=== PATIENT | female | born 1930 | race Asian ===

== ENCOUNTER 2018-12-31 21:04 | Inpatient (IN) | payer OTHER, MEDICAID ==
[~2018-12-31] VITALS: Ht 152.4 cm; Wt 43.1 kg
[2018-12-31 21:09] VITALS: BP_SYST 140
--- NOTE | 2018-12-31 21:15 | NUR ---
Placed in room 6 . Placed on etl architect, blood pressure machine and pulse oximeter. To gown for exam. Side rails up. Report given to YOGESH LUKE.
--- NOTE | 2018-12-31 21:30 | NUR ---
Emily eaton in ED - 12/31/18 at 2135 by [email or web address] Patient to ER bed 6 to wn for evaluation. Side rails up.
--- NOTE | 2018-12-31 21:30 | NUR ---
Pt came to the ED for abnormal labs. Reported from facility hemoglobin is 7.7. Denies n/v/d or fever. No other complaints/injuries noted. Will cont. to monitor.
[2018-12-31] MEDS ORDERED: FLEETMO RC (21:33)
[2018-12-31] MEDS ORDERED: FER300L PO (21:33)
[2018-12-31] MEDS ORDERED: FAMO20TA8 PO (21:33)
[2018-12-31] MEDS ORDERED: LEVO175T2 PO (21:33)
[2018-12-31] MEDS ORDERED: METO50TA7 PO (21:33)
[2018-12-31] MEDS ORDERED: FOLI-43 PO (21:33)
[2018-12-31] MEDS ORDERED: MULT-1117 PO (21:33)
[2018-12-31] MEDS ORDERED: ISOS5TAB3 PO (21:33)
[2018-12-31] MEDS ORDERED: PYRI200T10 PO (21:33)
[2018-12-31] MEDS ORDERED: ACET325T53 PO (21:33)
[2018-12-31] MEDS ORDERED: DOCU-144 PO (21:33)
[2018-12-31] MEDS ORDERED: CRAN450C PO (21:33)
[2018-12-31] MEDS ORDERED: NUT.237L28 PO (21:33)
[2018-12-31] MEDS ORDERED: EPOE3000 SUBCUT (21:33)
[2018-12-31] MEDS ORDERED: MOM PO (21:33)
[2018-12-31] MEDS ORDERED: MONT10TA25 PO (21:33)
[2018-12-31] MEDS ORDERED: LIP40 PO (21:33)
--- NOTE | 2018-12-31 21:35 | NUR ---
Medication reconciliation completed with information provided by [facility]. Any prior medication reconciliation on file was reviewed and corrected.
[2018-12-31 21:40] LABS: BASOPHILS # (AUTO) 0.1 K/uL (0.0-0.2); EOSINOPHILS # (AUTO) 0.3 K/uL (0.0-0.4); HEMATOCRIT 23.6 % (36-48); MEAN CORPUSCULAR HEMOGLOBIN 38 pg (27-31); MEAN CORPUSCULAR VOLUME 114 fL (79.0-98.0); NEUTROPHILS # (AUTO) 3.3 K/uL (1.8-7.7); WHITE BLOOD COUNT (AUTO) 5.9 K/uL (4.8-10.8)
--- NOTE | 2018-12-31 21:45 | NUR ---
ER at bedside examining patient.
[2018-12-31 21:46] LABS: BASOPHILS % (AUTO) 1.1 % (0.0-2.0); EOSINOPHILS % (AUTO) 5.5 % (0.0-4.0); LYMPHOCYTES # (AUTO) 1.6 K/uL (1.0-5.5); LYMPHOCYTES % (AUTO) 27.6 % (20.5-51.5); MEAN CORPUSCULAR HGB CONC 34 % (32-36); MONOCYTES # (AUTO) 0.6 K/uL (0.0-1.0); MONOCYTES % (AUTO) 10.7 % (1.7-9.3); NEUTROPHILS % (AUTO) 55.1 % (40.0-70.0); PLATELET COUNT (AUTO) 274 K/uL (130-430); RED BLOOD CELL COUNT(AUTO) 2.08 MIL/uL (4.2-6.2); RED CELL DISTRIBUTION WIDTH 29.3 % (9.0-15.0)
[2018-12-31 21:51] LABS: ANION GAP 6 (5-15); CALCIUM 8.9 mg/dL (8.4-11.0); CHLORIDE 107 mmol/L (98-107); CREATININE 1.15 mg/dL (0.55-1.30); GLUCOSE 108 mg/dL (70-99); POTASSIUM 5.1 mmol/L (3.5-5.1); SODIUM SERUM 139 mmol/L (136-145); UREA NITROGEN, BLOOD 44 mg/dL (8-21)
[2018-12-31 21:57] LABS: ALANINE AMINOTRANSFERASE 80 U/L (12-78); ALBUMIN 3.4 g/dL (3.4-4.8); ASPARTATE AMINOTRANSFERASE 51 U/L (10-37); TOTAL BILIRUBIN 1.1 mg/dL (0.0-1.0)
[2018-12-31 22:05] LABS: INR 1.1 (0.8-1.2); PROTHROMBIN TIME 10.6 SECS (9.5-12.5)
[2018-12-31 22:32] LABS: BILIRUBIN,URINE NEGATIVE (NEGATIVE); BLOOD, URINE NEGATIVE (NEGATIVE); CLARITY/URINE CLEAR (CLEAR); COLOR,URINE YELLOW (YELLOW); GLUCOSE,URINE NEGATIVE (NEGATIVE); KETONES,URINE NEGATIVE (NEGATIVE); LEUKOCYTE ESTERASE ,URINE NEGATIVE (NEGATIVE); NITRITE, URINE NEGATIVE (NEGATIVE); PROTEIN URINE 1+ (NEGATIVE); UROBILINOGEN,URINE 0.2 (0.2-1.0)
[2018-12-31 22:35] LABS: RBC,URINE 0-3 /HPF (0-3)
[2018-12-31 22:36] LABS: BACTERIA,URINE FEW /HPF (None Seen); WBC,URINE 0-3 /HPF (0-3)
--- NOTE | 2018-12-31 23:24 | NUR ---
Patient will be admitted to care of Dr. Galicia. Admitted to Tele unit. Will go to room 135. Belongings list completed. Summary report printed. Report will be given at bedside.
--- NOTE | 2018-12-31 23:29 | NUR ---
Called [facility] for bed, waiting for placement.
--- NOTE | 2018-12-31 23:46 | NUR ---
Transfer to [facility]. IV present no sign or symptom of infiltration.
--- NOTE | 2018-12-31 23:46 | NUR ---
ADMISSION NOTE Received patient from ER via abiodun, received report from TI ZUÑIGA. Patient admitted with diagnosis of ANEMIA. Patient oriented to hospital routine, call light, toileting and safety-patient verbalized understanding.
[2018-12-31 23:58] VITALS: BP_SYST 129
--- NOTE | 2019-01-01 00:30 | NUR ---
BEDPAN Patient called, requesting for bedpan. Bedpan provided by RN. Patient tolerated well. All needs met at this time. No s/s of acute distress noted. Breathing even and unlabored. Call light with patient, instructed to call for assistance when needed, patient verbalized understanding and demonstrated back proper use. Bed alarm on. Bed is locked and at lowest position. Will continue to monitor.
--- NOTE | 2019-01-01 02:35 | NUR ---
ROUNDS Pt in bed with eyes closed resting comfortably. No signs of acute distress or discomfort noted. Even and unlabored breathing noted with symmetrical chest rise and fall. Bed is locked and in lowest position, call light within reach, will cont to monitor pt.
--- NOTE | 2019-01-01 04:30 | NUR ---
ROUNDS Patient in bed sleeping. no signs of discomfort noted. Chest rise and fall even bilaterally. Call light with patient. Bed alarm on. Will continue to monitor.
[2019-01-01] MEDS: NORMAL SALINE 5 ML DISP.SYRIN IVF SCH ×3 (05:51→21:35)
--- NOTE | 2019-01-01 06:38 | NUR ---
CLOSING NOTES Patient in bed sleeping at this time. No s/s of acute distress noted. Breathing even and unlabored. IV site patent, no signs of infiltration or infection noted. All needs met throughout shift. Fall and safety precautions maintained throughout shift. Will continue to monitor until patient care is endorsed to oncoming dayshift nurse.
[2019-01-01 07:30] LABS: EOSINOPHILS # (AUTO) 0.3 K/uL (0.0-0.4); EOSINOPHILS % (AUTO) 6.6 % (0.0-4.0); LYMPHOCYTES # (AUTO) 1.6 K/uL (1.0-5.5); LYMPHOCYTES % (AUTO) 34.6 % (20.5-51.5); MEAN CORPUSCULAR HEMOGLOBIN 38 pg (27-31); MEAN CORPUSCULAR HGB CONC 33 % (32-36); MEAN CORPUSCULAR VOLUME 114 fL (79.0-98.0); MONOCYTES # (AUTO) 0.4 K/uL (0.0-1.0); MONOCYTES % (AUTO) 9.6 % (1.7-9.3); NEUTROPHILS # (AUTO) 2.2 K/uL (1.8-7.7); NEUTROPHILS % (AUTO) 48.2 % (40.0-70.0); PLATELET COUNT (AUTO) 258 K/uL (130-430); WHITE BLOOD COUNT (AUTO) 4.5 K/uL (4.8-10.8)
--- NOTE | 2019-01-01 07:30 | NUR ---
Initial notes: Patient awake, alert and oriented. Cantonese speaking. Stable. I.V. access patent. Seen by Dr. Valle. Call light within reach. Report received from TI Martines.
[2019-01-01 07:48] LABS: ALANINE AMINOTRANSFERASE 79 U/L (12-78); ALBUMIN 3.3 g/dL (3.4-4.8); CALCIUM 9.3 mg/dL (8.4-11.0); CREATININE 1.01 mg/dL (0.55-1.30); GLUCOSE 87 mg/dL (70-99); TOTAL BILIRUBIN 1.3 mg/dL (0.0-1.0); UREA NITROGEN, BLOOD 43 mg/dL (8-21)
[2019-01-01 07:51] LABS: RED CELL DISTRIBUTION WIDTH 28.8 % (9.0-15.0)
[2019-01-01 08:00] VITALS: BP_SYST 146
[2019-01-01 08:07] LABS: ANION GAP 6 (5-15); CHLORIDE 108 mmol/L (98-107); POTASSIUM 4.9 mmol/L (3.5-5.1); SODIUM SERUM 140 mmol/L (136-145)
[2019-01-01 08:25] LABS: ASPARTATE AMINOTRANSFERASE 53 U/L (10-37)
--- NOTE | 2019-01-01 09:06 | NUR ---
rounds: patient resting. no distress noted.
--- NOTE | 2019-01-01 10:30 | NUR ---
Nutrition Update Jose Scale 18 noted. Pt admitted for anemia. Diet: [facility] BMI: 18.6 kg/m2 RD to follow per nutrition care standards.
--- NOTE | 2019-01-01 10:38 | NUR ---
communication barrier: Uses the blue phone, patient not responding to Cantonese and Mandarin. Asked the patient language and she just said "Mohawk". Called the family, no answer and left a voice mail to call back.
--- NOTE | 2019-01-01 12:00 | NUR ---
rounds: patient remains npo for abd u/s.
[2019-01-01 12:04] VITALS: BP_SYST 136
[2019-01-01 16:45] VITALS: BP_SYST 144
--- NOTE | 2019-01-01 16:58 | NUR ---
rounds: patient sleeping. no distress noted.
--- NOTE | 2019-01-01 17:19 | NUR ---
Discharge Planning: DCP spoke to Deborah from [place] (f [phone]) patient accepted to room 210A. Nurse made aware.
--- NOTE | 2019-01-01 18:45 | NUR ---
Closing notes: Patient resting on bed. Stable. Needs attended. Call light within reach. Safety measures in placed. Report will be given to shift supervisor film processing.
[2019-01-01 19:00] VITALS: BP_SYST 140
--- NOTE | 2019-01-01 19:15 | NUR ---
change of shift.pt.presents quiescent affect;calm.language barrier extant;puerto rican?general status stable.respiratory status stable. unlabored@room air.call light/telephone w/in reach of the pt.
[2019-01-01 20:00] VITALS: BP_SYST 140
--- NOTE | 2019-01-01 20:00 | NUR ---
pt.assessed.v/s assessed;values w/in normal limits;per flacc;pain mgx.pt.absent facial grimaces/body posturing.2/t language barrier pt.incapable to convey pain level;presence.pt.assessed for cleanliness.pt.repositioned.02-sat%=94%@room air.iv access intact;patent; lock.call light/telephone placed w/in reach of the pt.
--- NOTE | 2019-01-01 21:00 | NUR ---
2100p no po medication scheduled.i have assessed the blood glucose;value;138mg/dl.i have noted the ns-flush:scheduled; 5ml via peripheral line;iv access intact;patent.i have assistd the pt.utilize the bedpan.i have measured/cleaned the bedpan.
--- NOTE | 2019-01-01 22:00 | NUR ---
pt.assessed.pt.presents quiescent affect;calm,somnolent.pt.assessed for cleanliness.pt.repositioned.iv access intact patent. general status stable.respiratory status stable;unlabored;02-sat5=94%.call light/telephone placed w/in reach of the pt.
[2019-01-01 23:58] VITALS: BP_SYST 143
--- NOTE | 2019-01-02 | NUR ---
pt./assessed.v/s assessed;values w/in normal limits.pt.assessed for cleanliness.pt.repositioned.per flacc;pain mgx;pt.absent facial grimaces/body posturing.general status stable.respiratory status stable;unlabored;02-sat%=94%.iv access intact.call light/telephone placed w/in reach of the pt.
--- NOTE | 2019-01-02 02:00 | NUR ---
pt.assessed.pt.presents quiescent affect;calm,somnolent.pt.assessed for cleanliness.pt.repositioned.general status stable.respiratory status stable:unlabored.iv access intact;call light/telephone placed w/in reach of the pt.
--- NOTE | 2019-01-02 04:00 | NUR ---
pt.assessed.pt.presents quiescent affect;calm.pt.assessed for cleanliness.berry;sony has assisted the pt.w/ the bedpan.pt.repositioned. per flacc;pain mgx;pt.absent facial grimaces/body posturing.general status stable.respiratory status stable.unlabored. call light/telephone placed w/in reach of the pt.
--- NOTE | 2019-01-02 05:55 | NUR ---
CONSULT Called Dr. Lujan's answering service for morning consult [phone] Spoke to Debbie
[2019-01-02] MEDS: NORMAL SALINE 5 ML DISP.SYRIN IVF SCH ×2 (06:00→15:12)
--- NOTE | 2019-01-02 06:00 | NUR ---
pt.assessed pt.assessed for cleanliness.pt.repositioned.i have assisted the pt.w/ the bedpan.per flacc;pain mgx;pt./absent facial grimaces/body posturing.i have assessed the blood glucose;value;82mg/sld.call light/telephone placed w/in reach of the pt.
--- NOTE | 2019-01-02 08:00 | NUR ---
ASSUMPTION OF CARE: RECEIVED PT AWAKE, CANTONESE SPEAKING, ORIENTED TO NAME, EVENT, ABLE TO COMMUNICATE NEEDS. DX: RISK FOR FLUID VOLUME DEFICIT, R/T ANEMIA. VITAL SIGNS ARE STABLE, NO S/S OF DISTRESS, IV SITE INTACT, PATENT, NO REDNESS OR SWELLING, ORIENTED TO CALL LIGHT, PLACED WITHIN REACH, WILL CON'T TO MONITOR AND ASSESS.
[2019-01-02 08:10] LABS: AFP, TUMOR MARKER 1.3 ng/mL (0.0-8.3)
[2019-01-02 11:28] VITALS: BP_SYST 126
--- NOTE | 2019-01-02 11:30 | NUR ---
GLUCOSE MONITORING: BLOOD SUGAR VLTFS=613, NO COVERAGE REQUIRED, PT AWAKE, LUNCH MEAL AT BEDSIDE, WILL ASSIST WITH SETUP, CON'T TO MONITOR AND ASSESS.
--- NOTE | 2019-01-02 13:14 | NUR ---
Case mgt: Charge nurse Asuncion was made aware pt has assigned bed at [facility]--Per nurse Shannan H, she indicates Dr. Nugent indicated pt needs EGD but unable to do it until Friday01/04/19--Shannan will f/u with Dr. Galicia to see if pt will need to stay--possible f/u as outpt? RN
--- NOTE | 2019-01-02 15:00 | NUR ---
NURSES NOTES: PT ASLEEP, AROUSED VIA VERBAL STIMULI, NO SIGNIFICANT CHANGES NOTED AT THIS TIME, CALL LIGHT REMAINS WITHIN REACH, WILL CON'T TO MONITOR, WILL CON'T WITH POC.
[2019-01-02 15:21] VITALS: BP_SYST 137
--- NOTE | 2019-01-02 16:10 | NUR ---
Case mgt: SNF transfer packet taken to nursing station in case pt is cleared for discharge-ok to use any BLS ambulance when dc order given by MD--KYLE RN
--- NOTE | 2019-01-02 17:00 | NUR ---
GLUCOSE MONITORING: BLOOD SUGAR LEVEL=93, NO COVERAGE REQUIRED, WILL CON'T TO MONITOR AND ASSESS.
[2019-01-02 19:00] VITALS: BP_SYST 109
[2019-01-02 19:29] VITALS: BP_SYST 130
--- NOTE | 2019-01-02 19:36 | NUR ---
PATIENT WITH ORDERS FOR DISCHARGE BACK TO SNF AND CLEARED BY DR FERGUSON. DR GODOY HAS ORDERS FOR THE PREPARATION FOR THE PROCEDURE TO BE DONE ON FRIDAY BUT DR MENDOZA ORDERS FOR THE PATIENT FOR DISCHARGE IS OK WITH DR FERGUSON AND ORDERS FROM DR FERGUSON OKAY FOR DISCHARGE, DISCHARGE REPORT WAS GIVEN BY THE DAY SHIFT RN TO VINICIUS
--- NOTE | 2019-01-02 19:47 | NUR ---
DR MENDOZA WILL COME FOR THE MEDICATION DISCHARGE RECONCILIATION DR GODOY PAGED TO INFORM ABOUT THE DISCHARGE
--- NOTE | 2019-01-02 20:16 | NUR ---
DR MENDOZA IN AND INFORMED ABOUT THE CALL FROM THE RN IN THE SNF THAT INQUIRE WITH HBG8.0 CAN THE PATIENT BE DISCHARGE IN THE MORNING TO CHECK ON THE HBG,BUT DR MENDOZA ORDERED OKAY TO DISCHARGE THE PATIENT PLACIDOIGHT
--- NOTE | 2019-01-02 20:33 | NUR ---
THE FAMILY CALLED ON THE NUMBER LISTED AND NO RESPONSE ,MESSAGE LEFT AND CALL BACK NUMBER LEFT TO INFORM ABOUT THE PATIENT TRANSFER TO SNF. RN IN THE SNF INFORMED THAT THE PATIENT IS GOING FOR TRANSFER AND OKAY WITH HBG OF 8.0
--- NOTE | 2019-01-02 21:36 | NUR ---
[facility] IN AND REPORT GIVEN TO THE AMBULANCE PERSONNEL. [facility]
--- NOTE | 2019-01-02 21:44 | NUR ---
PATIENT DISCHARGE PER [place] WITH [facility] TO [facility] FOR FURTHER CARE IN STABLE CONDITION.[facility] INFORMED TO RELAY TO THE RN THAT THE FAMILY WAS CALLED ABOUT THE TRANSFER BUT NO RESPONSE, MESSAGE LEFT AND NEEDS TO BE FOLLOWED UP
[2019-01-02 22:00] VITALS: BP_SYST 109
[2019-01-03 15:16] LABS: ANTI-SMOOTH MUSCLE AB 13 Units (0-19)
[2019-01-04 08:05] LABS: FERRITIN 5845 ng/mL (15-150)
[2019-01-04 22:10] LABS: FOLATE (FOLIC ACID) >20.0 ng/mL (>3.0)
[2019-01-07 10:19] LABS: ANTI NUCLEAR AB WITH REFLEX POSITIVE (NEGATIVE)
[2019-01-07 10:20] LABS: ANTI-DNA(DS) AB, QN 3 IU/mL (0-9); SMITH ABS <0.2 AI (0.0-0.9)
== END 2019-01-02 21:30 | DRG 812 ==
LOC: SED 21:04 → SMU 23:26 → OBSVTOIN 23:30 → SMU 23:46
PROVIDERS: ADMIT Internal Medicine; ATTEND Internal Medicine
DX: D46.9 Myelodysplastic syndrome, unspecified (principal); D53.9 Nutritional anemia, unspecified; D53.1 Other megaloblastic anemias, not elsewhere classified; E11.9 Type 2 diabetes mellitus without complications; I10 Essential (primary) hypertension; J44.9 Chronic obstructive pulmonary disease, unspecified; F03.90 Unspecified dementia, unspecified severity, without behavioral disturbance, psychotic disturbance, mood disturbance, and anxiety; Z79.899 Other long term (current) drug therapy
CPT/HCPCS: 36415; 76700-TC; 80053; 81000-TC; 82105; 82390; 82607; 82728; 82746; 82962; 83516; 85025; 85610-TC; 85730-TC; 86038; 86886; 86900; 86901; 87081; 99285; G0378

== ENCOUNTER 2019-03-01 21:19 | Inpatient (IN) | payer OTHER, MEDICAID ==
[~2019-03-01] VITALS: Ht 152.4 cm; Wt 41.7 kg
[~2019-03-01 21:19] MED LIST: ACET325T53 PO; CRAN450C PO; DOCU-144 PO; EPOE3000 SUBCUT; FAMO20TA8 PO; FER300L PO; FLEETMO RC; FOLI-43 PO; ISOS5TAB3 PO; LEVO175T2 PO; LIP40 PO; METO50TA7 PO; MOM PO; MONT10TA25 PO; MULT-1117 PO; NUT.237L28 PO; PYRI200T10 PO
[2019-03-01 21:23] VITALS: BP_SYST 110
[2019-03-01] MEDS ORDERED: NS 250 ML IV ONE (21:45)
[2019-03-01 22:10] LABS: EOSINOPHILS # (AUTO) 0.2 K/uL (0.0-0.4); EOSINOPHILS % (AUTO) 4.1 % (0.0-4.0); LYMPHOCYTES # (AUTO) 1.5 K/uL (1.0-5.5); LYMPHOCYTES % (AUTO) 32.7 % (20.5-51.5); MEAN CORPUSCULAR HEMOGLOBIN 41 pg (27-31); MEAN CORPUSCULAR HGB CONC 35 % (32-36); MEAN CORPUSCULAR VOLUME 119 fL (79.0-98.0); MONOCYTES # (AUTO) 0.3 K/uL (0.0-1.0); MONOCYTES % (AUTO) 7.2 % (1.7-9.3); NEUTROPHILS # (AUTO) 2.5 K/uL (1.8-7.7); WHITE BLOOD COUNT (AUTO) 4.6 K/uL (4.8-10.8)
[2019-03-01 22:14] LABS: HEMOGLOBIN 6.9 g/dL (12.0-16.0); RED BLOOD CELL COUNT(AUTO) 1.67 MIL/uL (4.2-6.2)
[2019-03-01 22:15] LABS: HEMATOCRIT 19.9 % (36-48)
[2019-03-01 22:24] LABS: ANION GAP 4 (5-15); CALCIUM 8.2 mg/dL (8.4-11.0); CHLORIDE 104 mmol/L (98-107); CREATININE 1.11 mg/dL (0.55-1.30); GLUCOSE 122 mg/dL (70-99); POTASSIUM 5.1 mmol/L (3.5-5.1); SODIUM SERUM 134 mmol/L (136-145); UREA NITROGEN, BLOOD 46 mg/dL (8-21)
[2019-03-01 22:29] LABS: ALANINE AMINOTRANSFERASE 75 U/L (12-78); ALBUMIN 3.3 g/dL (3.4-4.8); ASPARTATE AMINOTRANSFERASE 40 U/L (10-37)
[2019-03-01 22:45] LABS: PROTHROMBIN TIME 10.5 SECS (9.5-12.5)
[2019-03-01 23:00] LABS: PLATELET COUNT (AUTO) 248 K/uL (130-430)
[2019-03-01] MEDS ORDERED: SENN8.6T19 PO (23:18)
[2019-03-01] MEDS ORDERED: LEVO125T PO (23:18)
[2019-03-01] MEDS ORDERED: [UNRECOGNIZED DRUG - CODE] PO (23:18)
[2019-03-01] MEDS ORDERED: OMEP20CA11 PO (23:18)
[2019-03-01] MEDS ORDERED: BISA10SU61 RC (23:18)
[2019-03-01 23:27] LABS: BILIRUBIN,URINE NEGATIVE (NEGATIVE); BLOOD, URINE NEGATIVE (NEGATIVE); CLARITY/URINE CLEAR (CLEAR); COLOR,URINE YELLOW (YELLOW); GLUCOSE,URINE NEGATIVE (NEGATIVE); KETONES,URINE NEGATIVE (NEGATIVE); LEUKOCYTE ESTERASE ,URINE NEGATIVE (NEGATIVE); NITRITE, URINE NEGATIVE (NEGATIVE); PROTEIN URINE TRACE (NEGATIVE); UROBILINOGEN,URINE 0.2 (0.2-1.0)
[2019-03-02] VITALS (7 sets, daily range): BP systolic 124–163
[2019-03-02 14:38] LABS: HEMATOCRIT 30.5 % (36-48); HEMOGLOBIN 10.1 g/dL (12.0-16.0); MEAN CORPUSCULAR HEMOGLOBIN 36 pg (27-31); MEAN CORPUSCULAR HGB CONC 33 % (32-36); MEAN CORPUSCULAR VOLUME 107 fL (79.0-98.0); PLATELET COUNT (AUTO) 237 K/uL (130-430); RED BLOOD CELL COUNT(AUTO) 2.84 MIL/uL (4.2-6.2); RED CELL DISTRIBUTION WIDTH 27.6 % (9.0-15.0); WHITE BLOOD COUNT (AUTO) 4.1 K/uL (4.8-10.8)
[2019-03-02 14:50] LABS: ALANINE AMINOTRANSFERASE 70 U/L (12-78); ALBUMIN 3.2 g/dL (3.4-4.8); ANION GAP 6 (5-15); ASPARTATE AMINOTRANSFERASE 44 U/L (10-37); CALCIUM 8.6 mg/dL (8.4-11.0); CHLORIDE 109 mmol/L (98-107); CREATININE 1.02 mg/dL (0.55-1.30); GLUCOSE 123 mg/dL (70-99); POTASSIUM 4.9 mmol/L (3.5-5.1); SODIUM SERUM 143 mmol/L (136-145); TOTAL BILIRUBIN 0.9 mg/dL (0.0-1.0); UREA NITROGEN, BLOOD 36 mg/dL (8-21)
[2019-03-02 16:47] LABS: ATYPICAL LYMPHOCYTES % 4 % (0-0); BAND % (MANUAL) 4 % (0-6); LYMPHOCYTES % (MANUAL) 30 % (20-46)
[2019-03-02 16:48] LABS: BASOPHILS % (MANUAL) 0 % (0-2); EOSINOPHILS % (MANUAL) 3 % (0-7); MONOCYTES % (MANUAL) 10 % (0-11)
[2019-03-03 08:00] VITALS: BP_SYST 153
[2019-03-03] MEDS: PANTOPRAZOLE SODIUM 40 MG TAB PO SCH (08:05)
[2019-03-03 12:00] VITALS: BP_SYST 145
[2019-03-03 16:00] VITALS: BP_SYST 125
[2019-03-03] MEDS ORDERED: BISACODYL 5 MG TABLET.DR (DULCOLAX) PO ONE (17:00)
[2019-03-03] MEDS ORDERED: GOLYTELY / COLYTE SOLUTION 4 LITERS PO ONE (18:00)
[2019-03-03 20:00] VITALS: BP_SYST 160
[2019-03-04] MEDS ORDERED: fentaNYL CITRATE/PF 100 MCG/2 ML AMP ONE (06:24)
[2019-03-04] MEDS ORDERED: SIMETHICONE 40 MG/0.6 ML ML ONE (06:25)
[2019-03-04] MEDS ORDERED: MIDAZOLAM HCL 5 MG/5 ML VIAL ONE (06:25)
[2019-03-04] MEDS: PANTOPRAZOLE SODIUM 40 MG TAB PO SCH (09:00)
[2019-03-05] MEDS: PANTOPRAZOLE SODIUM 40 MG TAB PO SCH (09:00)
[2019-03-05 19:30] VITALS: BP_SYST 145
[2019-03-06 00:30] VITALS: BP_SYST 156
[2019-03-06 08:00] VITALS: BP_SYST 141
[2019-03-06 10:03] LABS: BASOPHILS # (AUTO) 0.1 K/uL (0.0-0.2); BASOPHILS % (AUTO) 1.5 % (0.0-2.0); EOSINOPHILS # (AUTO) 0.3 K/uL (0.0-0.4); EOSINOPHILS % (AUTO) 9.2 % (0.0-4.0); HEMOGLOBIN 9.5 g/dL (12.0-16.0); LYMPHOCYTES # (AUTO) 1.2 K/uL (1.0-5.5); LYMPHOCYTES % (AUTO) 35.5 % (20.5-51.5); MEAN CORPUSCULAR HEMOGLOBIN 36 pg (27-31); MEAN CORPUSCULAR HGB CONC 33 % (32-36); MEAN CORPUSCULAR VOLUME 110 fL (79.0-98.0); MONOCYTES # (AUTO) 0.3 K/uL (0.0-1.0); NEUTROPHILS # (AUTO) 1.5 K/uL (1.8-7.7); NEUTROPHILS % (AUTO) 43.8 % (40.0-70.0); PLATELET COUNT (AUTO) 211 K/uL (130-430); RED BLOOD CELL COUNT(AUTO) 2.64 MIL/uL (4.2-6.2); RED CELL DISTRIBUTION WIDTH 25.5 % (9.0-15.0); WHITE BLOOD COUNT (AUTO) 3.4 K/uL (4.8-10.8)
[2019-03-06] MEDS: PANTOPRAZOLE SODIUM 40 MG TAB PO SCH (10:18)
[2019-03-06 12:20] VITALS: BP_SYST 136
[2019-03-06 16:20] VITALS: BP_SYST 148
[2019-03-06 19:35] VITALS: BP_SYST 140
[2019-03-07] VITALS: BP_SYST 150
[2019-03-07] MEDS ORDERED: SENNOSIDES 8.6 MG TABLET PO PRN (05:15)
[2019-03-07] MEDS: LEVOTHYROXINE SODIUM 0.125 MG TABLET PO SCH (06:28)
[2019-03-07 06:30] LABS: ANION GAP 9 (5-15); CALCIUM 8.5 mg/dL (8.4-11.0); CHLORIDE 108 mmol/L (98-107); CREATININE 0.81 mg/dL (0.55-1.30); GLUCOSE 91 mg/dL (70-99); POTASSIUM 3.9 mmol/L (3.5-5.1); SODIUM SERUM 141 mmol/L (136-145); UREA NITROGEN, BLOOD 18 mg/dL (8-21)
[2019-03-07 07:41] LABS: HEMATOCRIT 28.2 % (36-48); HEMOGLOBIN 9.4 g/dL (12.0-16.0); MEAN CORPUSCULAR HEMOGLOBIN 36 pg (27-31); MEAN CORPUSCULAR HGB CONC 33 % (32-36); MEAN CORPUSCULAR VOLUME 109 fL (79.0-98.0); PLATELET COUNT (AUTO) 198 K/uL (130-430); RED CELL DISTRIBUTION WIDTH 25.7 % (9.0-15.0); WHITE BLOOD COUNT (AUTO) 3.8 K/uL (4.8-10.8)
[2019-03-07 08:00] VITALS: BP_SYST 126
[2019-03-07] MEDS ORDERED: NON-FORMULARY MEDICATION (Isosorbide Dinitrate 5 MG) PO SCH (09:00)
[2019-03-07] MEDS ORDERED: OMEPRAZOLE Non-Formulary 20 MG CAPSULE.DR PO SCH (09:00)
[2019-03-07] MEDS ORDERED: PYRIDOXINE HCL 200 MG PO SCH (09:00)
[2019-03-07] MEDS ORDERED: BISACODYL 10 MG/SUPPOSITORY RC PRN (09:00)
[2019-03-07] MEDS: DOCUSATE SODIUM 100 MG CAPSULE PO SCH (09:32)
[2019-03-07] MEDS: ISOSORBIDE DINITRATE 10 MG TABLET (ISORDIL) PO SCH ×3 (09:33→21:05)
[2019-03-07] MEDS: PANTOPRAZOLE SODIUM 40 MG TAB PO SCH (09:34)
[2019-03-07] MEDS: MULTIVITAMINS TAB 1 TABLET PO SCH (09:34)
[2019-03-07] MEDS: METOPROLOL SUCCINATE 50 MG TAB.SR.24H (TOPROL XL) PO SCH (09:34)
[2019-03-07 11:47] LABS: BAND % (MANUAL) 8 % (0-6); BASOPHILS % (MANUAL) 0 % (0-2); EOSINOPHILS % (MANUAL) 11 % (0-7); LYMPHOCYTES % (MANUAL) 35 % (20-46); MONOCYTES % (MANUAL) 7 % (0-11)
[2019-03-07] MEDS: PYRIDOXINE HCL 50 MG TABLET PO SCH (14:22)
[2019-03-07 20:00] VITALS: BP_SYST 149
[2019-03-07] MEDS: ATORVASTATIN 20 MG TABLET PO SCH (21:06)
[2019-03-07] MEDS: MILK OF MAGNESIA 30 ML UDC PO SCH (21:06)
[2019-03-07] MEDS: MONTELUKAST 10 MG TABLET PO SCH (21:07)
[2019-03-08] MEDS: LEVOTHYROXINE SODIUM 0.125 MG TABLET PO SCH (05:18)
[2019-03-08 06:47] LABS: BASOPHILS # (AUTO) 0.1 K/uL (0.0-0.2); BASOPHILS % (AUTO) 0.7 % (0.0-2.0); EOSINOPHILS # (AUTO) 0.1 K/uL (0.0-0.4); EOSINOPHILS % (AUTO) 0.8 % (0.0-4.0); HEMATOCRIT 28.1 % (36-48); HEMOGLOBIN 9.4 g/dL (12.0-16.0); LYMPHOCYTES # (AUTO) 1.8 K/uL (1.0-5.5); LYMPHOCYTES % (AUTO) 20.3 % (20.5-51.5); MEAN CORPUSCULAR HEMOGLOBIN 36 pg (27-31); MEAN CORPUSCULAR HGB CONC 34 % (32-36); MEAN CORPUSCULAR VOLUME 108 fL (79.0-98.0); MONOCYTES # (AUTO) 0.7 K/uL (0.0-1.0); MONOCYTES % (AUTO) 7.8 % (1.7-9.3); NEUTROPHILS # (AUTO) 6.4 K/uL (1.8-7.7); NEUTROPHILS % (AUTO) 70.4 % (40.0-70.0); PLATELET COUNT (AUTO) 209 K/uL (130-430); RED BLOOD CELL COUNT(AUTO) 2.61 MIL/uL (4.2-6.2); RED CELL DISTRIBUTION WIDTH 25.1 % (9.0-15.0); WHITE BLOOD COUNT (AUTO) 9.1 K/uL (4.8-10.8)
[2019-03-08 06:53] LABS: ANION GAP 5 (5-15); CALCIUM 8.5 mg/dL (8.4-11.0); CHLORIDE 107 mmol/L (98-107); GLUCOSE 115 mg/dL (70-99); POTASSIUM 4.7 mmol/L (3.5-5.1); SODIUM SERUM 138 mmol/L (136-145); UREA NITROGEN, BLOOD 17 mg/dL (8-21)
[2019-03-08 06:54] LABS: CREATININE 0.86 mg/dL (0.55-1.30)
[2019-03-08 08:20] VITALS: BP_SYST 140
[2019-03-08] MEDS: PYRIDOXINE HCL 50 MG TABLET PO SCH (08:49)
[2019-03-08] MEDS: MULTIVITAMINS TAB 1 TABLET PO SCH (08:49)
[2019-03-08] MEDS: DOCUSATE SODIUM 100 MG CAPSULE PO SCH (08:49)
[2019-03-08] MEDS: PANTOPRAZOLE SODIUM 40 MG TAB PO SCH (08:49)
[2019-03-08] MEDS: METOPROLOL SUCCINATE 50 MG TAB.SR.24H (TOPROL XL) PO SCH (08:50)
[2019-03-08] MEDS: ISOSORBIDE DINITRATE 10 MG TABLET (ISORDIL) PO SCH ×3 (08:50→21:36)
[2019-03-08] MEDS: INSULIN REGULAR, HUMAN 100 UNITS/ML, 10 ML VIAL (humuLIN R) SUBCUT PRN ×2 (11:36→17:27)
[2019-03-08 12:05] VITALS: BP_SYST 125
[2019-03-08] MEDS: AMPICILLIN SODIUM/SULBACTAM NA 1.5 GM in NS 50 ML IV SCH ×2 (12:15→17:28)
[2019-03-08 16:59] VITALS: BP_SYST 128
[2019-03-08] MEDS ORDERED: EPOETIN ALFA 3,000 UNITS/ML VIAL SUBCUT SCH (17:00)
[2019-03-08 21:24] VITALS: BP_SYST 139
[2019-03-08] MEDS: MONTELUKAST 10 MG TABLET PO SCH (21:36)
[2019-03-08] MEDS: MILK OF MAGNESIA 30 ML UDC PO SCH (21:36)
[2019-03-08] MEDS: ATORVASTATIN 20 MG TABLET PO SCH (21:36)
[2019-03-08 23:59] VITALS: BP_SYST 120
[2019-03-09] MEDS: AMPICILLIN SODIUM/SULBACTAM NA 1.5 GM in NS 50 ML IV SCH ×4 (00:24→17:28)
[2019-03-09] MEDS: LEVOTHYROXINE SODIUM 0.125 MG TABLET PO SCH (06:46)
[2019-03-09 08:00] VITALS: BP_SYST 132
[2019-03-09] MEDS: METOPROLOL SUCCINATE 50 MG TAB.SR.24H (TOPROL XL) PO SCH (09:32)
[2019-03-09] MEDS: ISOSORBIDE DINITRATE 10 MG TABLET (ISORDIL) PO SCH ×2 (09:33→15:28)
[2019-03-09] MEDS: DOCUSATE SODIUM 100 MG CAPSULE PO SCH (09:33)
[2019-03-09] MEDS: MULTIVITAMINS TAB 1 TABLET PO SCH (09:33)
[2019-03-09] MEDS: PYRIDOXINE HCL 50 MG TABLET PO SCH (09:33)
[2019-03-09] MEDS: PANTOPRAZOLE SODIUM 40 MG TAB PO SCH (09:33)
[2019-03-09] MEDS ORDERED: MORPHINE 2 MG/ML INJ. SYRINGE IVP PRN (11:30)
[2019-03-09 12:00] VITALS: BP_SYST 108
[2019-03-09 15:30] VITALS: BP_SYST 131
[2019-03-09 17:58] VITALS: BP_SYST 131
[2019-03-16 12:12] LABS: INR 1.1 (0.8-1.2)
== END 2019-03-09 19:40 | DRG 811 ==
LOC: SED 21:19 → STU 23:45
PROVIDERS: ADMIT Internal Medicine; ATTEND Internal Medicine
PROC: 30233N1 Transfusion of Nonautologous Red Blood Cells into Peripheral Vein, Percutaneous Approach (ICD-10-PCS; principal; 2019-03-02)
PROC: 0DJD8ZZ Inspection of Lower Intestinal Tract, Via Natural or Artificial Opening Endoscopic (ICD-10-PCS; 2019-03-04)
PROC: 0DB68ZX Excision of Stomach, Via Natural or Artificial Opening Endoscopic, Diagnostic (ICD-10-PCS; 2019-03-04 08:00)
PROC: 07DR3ZX Extraction of Iliac Bone Marrow, Percutaneous Approach, Diagnostic (ICD-10-PCS; 2019-03-09)
DX: D46.9 Myelodysplastic syndrome, unspecified (principal); K29.71 Gastritis, unspecified, with bleeding; K57.31 Diverticulosis of large intestine without perforation or abscess with bleeding; D53.9 Nutritional anemia, unspecified; E03.9 Hypothyroidism, unspecified; E11.9 Type 2 diabetes mellitus without complications; E78.5 Hyperlipidemia, unspecified; F03.90 Unspecified dementia, unspecified severity, without behavioral disturbance, psychotic disturbance, mood disturbance, and anxiety; I10 Essential (primary) hypertension; J44.9 Chronic obstructive pulmonary disease, unspecified; K64.4 Residual hemorrhoidal skin tags; K21.9 Gastro-esophageal reflux disease without esophagitis; Z79.899 Other long term (current) drug therapy
CPT/HCPCS: 36415; 38220; 38221; 43235; 45378; 71045; 80048; 80053; 81003; 82962; 83605; 84484; 85007; 85025; 85027; 85060; 85610-TC; 85730-TC; 86886; 86900; 86901; 86920; 87040-TC; 87081; 87086; 88305; 88311; 88312; 88313; 93005; 99285; G0378; G0463; J0295; J0885; J1815; J2250; J2270; J3010; J7040; P9021

== ENCOUNTER 2019-04-08 23:27 | Emergency (ER) | payer OTHER, MEDICAID ==
[~2019-04-08] VITALS: Ht 152.4 cm; Wt 43.1 kg
[~2019-04-08 23:27] MED LIST changes: -ACET325T53 PO; +BISA10SU61 RC; -FAMO20TA8 PO; -FER300L PO; -FLEETMO RC; -FOLI-43 PO; +LEVO125T PO; -LEVO175T2 PO; -NUT.237L28 PO; +OMEP20CA11 PO; -PYRI200T10 PO; +SENN8.6T19 PO; +[UNRECOGNIZED DRUG - CODE] PO
[2019-04-08 23:46] VITALS: BP_SYST 155
[2019-04-09 01:14] LABS: BASOPHILS # (AUTO) 0.1 K/uL (0.0-0.2); BASOPHILS % (AUTO) 1.3 % (0.0-2.0); EOSINOPHILS # (AUTO) 0.2 K/uL (0.0-0.4); EOSINOPHILS % (AUTO) 5.3 % (0.0-4.0); HEMOGLOBIN 7.5 g/dL (12.0-16.0); LYMPHOCYTES # (AUTO) 1.6 K/uL (1.0-5.5); LYMPHOCYTES % (AUTO) 38.5 % (20.5-51.5); MEAN CORPUSCULAR HEMOGLOBIN 37 pg (27-31); MEAN CORPUSCULAR HGB CONC 33 % (32-36); MEAN CORPUSCULAR VOLUME 114 fL (79.0-98.0); MONOCYTES # (AUTO) 0.4 K/uL (0.0-1.0); MONOCYTES % (AUTO) 10.6 % (1.7-9.3); NEUTROPHILS # (AUTO) 1.8 K/uL (1.8-7.7); NEUTROPHILS % (AUTO) 44.3 % (40.0-70.0); PLATELET COUNT (AUTO) 206 K/uL (130-430); RED BLOOD CELL COUNT(AUTO) 2.01 MIL/uL (4.2-6.2); RED CELL DISTRIBUTION WIDTH 27.7 % (9.0-15.0)
[2019-04-09 01:19] LABS: ANION GAP 6 (5-15); CALCIUM 8.6 mg/dL (8.4-11.0); CHLORIDE 106 mmol/L (98-107); CREATININE 1.01 mg/dL (0.55-1.30); GLUCOSE 118 mg/dL (70-99); POTASSIUM 4.8 mmol/L (3.5-5.1); SODIUM SERUM 139 mmol/L (136-145); UREA NITROGEN, BLOOD 41 mg/dL (8-21)
[2019-04-09 01:28] LABS: ALANINE AMINOTRANSFERASE 62 U/L (12-78); ALBUMIN 3.3 g/dL (3.4-4.8); ASPARTATE AMINOTRANSFERASE 38 U/L (10-37); TOTAL BILIRUBIN 0.7 mg/dL (0.0-1.0)
--- NOTE | 2019-04-09 02:17 | NUR ---
Pt to bed 2
--- NOTE | 2019-04-09 02:34 | NUR ---
Pt BIB EMS with c/o abnormal labs. Pt is from [facility] and pt of Dr. Galicia. Pt was told to come to ER for abnormal labs. Will continue to monitor.
[2019-04-09] MEDS ORDERED: FOLI-43 PO (02:37)
[2019-04-09] MEDS ORDERED: FERR-69 PO (02:41)
[2019-04-09] MEDS ORDERED: ACET-2634 PO (02:44)
[2019-04-09] MEDS ORDERED: ACET325T53 PO (02:44)
--- NOTE | 2019-04-09 03:09 | NUR ---
ER Dr. Goetz at bedside examining patient.
--- NOTE | 2019-04-09 03:37 | NUR ---
Assisting Dr. Goetz to label maker for rectal exam. Tolerated well. Will cont. to monitor.
--- NOTE | 2019-04-09 03:38 | NUR ---
Emily eaton in [facility] - 04/09/19 at 0338 by [email or web address] Hemocult sample sent to lab.
--- NOTE | 2019-04-09 03:38 | NUR ---
Hemoccult sample sent to lab.
--- NOTE | 2019-04-09 04:35 | NUR ---
Patient to be transferred to [facility]. Report called to TI Kirk at receiving facility. [facility] has been called for transfer. ETA is [phone].
[2019-04-09 05:20] VITALS: BP_SYST 150
--- NOTE | 2019-04-09 05:20 | NUR ---
Patient given written and verbal discharge instructions and verbalizes understanding. ER MD Goetz discussed with patient the results and treatment provided. Patient in stable condition. ID arm band removed. No Rx given. Patient educated on pain management and to follow up with PMD. Pain Scale 0/10. Opportunity for questions provided and answered. Medication side effect fact sheet provided.
== END 2019-04-09 05:20 | disposition home or self-care (01) ==
LOC: SED 23:27
DX: D64.9 Anemia, unspecified (principal); I10 Essential (primary) hypertension; J44.9 Chronic obstructive pulmonary disease, unspecified; Z79.899 Other long term (current) drug therapy
CPT/HCPCS: 36415; 80053; 82272; 85025; 99283

== ENCOUNTER 2019-05-17 14:36 | Inpatient (IN) | payer OTHER, MEDICAID ==
[~2019-05-17] VITALS: Ht 154.9 cm; Wt 39.9 kg
[~2019-05-17 14:36] MED LIST changes: +ACET-2634 PO; +ACET325T53 PO; +FERR-69 PO; +FOLI-43 PO; -LIP40 PO; -MOM PO; -MULT-1117 PO
[2019-05-17 14:40] VITALS: BP_SYST 138
[2019-05-17 15:45] LABS: ANION GAP 4 (5-15); CHLORIDE 110 mmol/L (98-107); CREATININE 0.99 mg/dL (0.55-1.30); GLUCOSE 99 mg/dL (70-99); POTASSIUM 4.7 mmol/L (3.5-5.1); SODIUM SERUM 140 mmol/L (136-145); UREA NITROGEN, BLOOD 44 mg/dL (8-21)
[2019-05-17 15:51] LABS: INR 1.1 (0.8-1.2); PROTHROMBIN TIME 10.6 SECS (9.5-12.5)
[2019-05-17 15:58] LABS: ALANINE AMINOTRANSFERASE 50 U/L (12-78); ALBUMIN 2.9 g/dL (3.4-4.8); ASPARTATE AMINOTRANSFERASE 34 U/L (10-37); TOTAL BILIRUBIN 0.7 mg/dL (0.0-1.0)
[2019-05-17 16:01] LABS: BASOPHILS # (AUTO) 0.1 K/uL (0.0-0.2); BASOPHILS % (AUTO) 1.4 % (0.0-2.0); EOSINOPHILS # (AUTO) 0.1 K/uL (0.0-0.4); EOSINOPHILS % (AUTO) 3.1 % (0.0-4.0); LYMPHOCYTES # (AUTO) 1.6 K/uL (1.0-5.5); MEAN CORPUSCULAR HEMOGLOBIN 38 pg (27-31); MEAN CORPUSCULAR HGB CONC 33 % (32-36); MEAN CORPUSCULAR VOLUME 116 fL (79.0-98.0); MONOCYTES # (AUTO) 0.2 K/uL (0.0-1.0); MONOCYTES % (AUTO) 5.2 % (1.7-9.3); NEUTROPHILS # (AUTO) 2.3 K/uL (1.8-7.7); NEUTROPHILS % (AUTO) 52.3 % (40.0-70.0); PLATELET COUNT (AUTO) 275 K/uL (130-430); RED CELL DISTRIBUTION WIDTH 26.8 % (9.0-15.0); WHITE BLOOD COUNT (AUTO) 4.3 K/uL (4.8-10.8)
[2019-05-17 16:03] LABS: RED BLOOD CELL COUNT(AUTO) 1.67 MIL/uL (4.2-6.2)
--- NOTE | 2019-05-17 16:05 | NUR ---
Patient to ER bed 7 to gown for evaluation. Side rails up.
[2019-05-17 16:06] LABS: HEMATOCRIT 19.5 % (36-48); HEMOGLOBIN 6.4 g/dL (12.0-16.0)
--- NOTE | 2019-05-17 16:10 | NUR ---
Patient is awake, alert, and oriented x1. Patient was sent from [facility] in [place] for abnormal labs. Patient is not in any distress, she is pleasantly confused, non-ambulatory, and incontinent of bowel/bladder.
--- NOTE | 2019-05-17 16:25 | NUR ---
ER Dr. Rahman at bedside examining patient.
[2019-05-17 17:14] LABS: BILIRUBIN,URINE NEGATIVE (NEGATIVE); BLOOD, URINE NEGATIVE (NEGATIVE); CLARITY/URINE CLEAR (CLEAR); COLOR,URINE YELLOW (YELLOW); GLUCOSE,URINE NEGATIVE (NEGATIVE); KETONES,URINE NEGATIVE (NEGATIVE); LEUKOCYTE ESTERASE ,URINE NEGATIVE (NEGATIVE); NITRITE, URINE NEGATIVE (NEGATIVE); PROTEIN URINE TRACE (NEGATIVE); UROBILINOGEN,URINE 0.2 (0.2-1.0)
[2019-05-17 17:59] LABS: BACTERIA,URINE FEW /HPF (None Seen); MUCUS,URINE None Seen /LPF (None Seen); RBC,URINE 0-3 /HPF (0-3); WBC,URINE 0-3 /HPF (0-3)
--- NOTE | 2019-05-17 18:17 | NUR ---
Patient will be admitted to care of Dr. Galicia. Admitted to medsurg unit. Waiting for TI Roland to assign room. Belongings list completed. Complete and up to date summary report printed. SBAR report to be given at bedside with opportunity for questions.
--- NOTE | 2019-05-17 19:15 | NUR ---
[facility]. IV present no signs or symptoms of infiltration.
[2019-05-17 19:30] VITALS: BP_SYST 140
--- NOTE | 2019-05-17 19:30 | NUR ---
ADMISSION: The patient, SHIRLEY ESCOBAR, 89 y/o, F admitted by BRAYDEN MENDOZA MD, with the diagnosis of Severe Anemia, was given written information regarding hospital policies, unit procedures and contact persons.
--- NOTE | 2019-05-17 21:15 | NUR ---
BLOOD TRANSFUSION STARTED BLOOD TRANSFUSION STARTED AT THIS TIME. 2 RN VERIFIED BLOOD, CHARGE NURSE TI HILTON AND MOHIT LUKE. VITAL SIGNS TAKEN AND RECORDED. VITAL SIGNS WITHIN NORMAL LIMITS. CONSENT ON THE RECORD. NO SIGNS OF RESPIRATORY DISTRESS NOTED. DENIES PAIN AND DISCOMFORT. PATIENT AOX1, PLEASANT AND COOPERATIVE. SAFETY PRECAUTIONS IN PLACE. BED LOCKED AND IN LOWEST POSITION. WILL CONTINUE TO MONITOR PATIENT.
--- NOTE | 2019-05-17 23:01 | NUR ---
RN ROUNDS PATIENT AWAKE, WATCHING TV. NO SIGNS OF RESPIRATORY DISTRESS AND DISCOMFORT NOTED. DENIES PAIN AT THIS TIME. NEEDS ATTENDED. PATIENT ASSISTED TO BED ALDANA, PATIENT TOLERATED WELL. BLOOD TRANSFUSION INFUSING WELL, PATENCY NOTED. SAFETY PRECAUTIONS IN PLACE. WILL CONTINUE TO MONITOR PATIENT
[2019-05-18 00:26] VITALS: BP_SYST 149
--- NOTE | 2019-05-18 00:44 | NUR ---
BLOOD TRANSFUSION 2ND UNIT PRBC BLOOD TRANSFUSION 2ND UNIT OF PRBC STARTED AT THIS TIME. 2 RN VERIFIED BLOOD, XOCHILT RN AND MOHIT RN. VITAL SIGNS TAKEN AND RECORDED. VITAL SIGNS WITHIN NORMAL LIMITS. NO SIGNS OF RESPIRATORY DISTRESS NOTED. DENIES PAIN AND DISCOMFORT. SAFETY PRECAUTIONS IN PLACE. BED LOCKED AND IN LOWEST POSITION. WILL CONTINUE TO MONITOR PATIENT.
--- NOTE | 2019-05-18 00:54 | NUR ---
CONSULT: CONSULT CALLED FOR DR. FERGUSON I SPOKE WITH AMAYA MCDOWELL REASON FOR CONSULT: ANEMIA REQUESTING CONSULT: DR. MENDOZA OUTSIDE PHYSICAL DAMAGE APPRAISER PHONE NUMBER: [phone]
--- NOTE | 2019-05-18 02:30 | NUR ---
RN ROUNDS PATIENT ASLEEP AT THIS TIME. NO SIGNS OF RESPIRATORY DISTRESS AND DISCOMFORT NOTED. BLOOD TRANSFUSION, INFUSING WELL.. SAFETY PRECAUTIONS IN PLACE. WILL CONTINUE TO MONITOR PATIENT.
--- NOTE | 2019-05-18 04:40 | NUR ---
RN ROUNDS PATIENT ASLEEP AT THIS TIME. NO SIGNS OF RESPIRATORY DISTRESS AND DISCOMFORT NOTED. BREATHING EVEN AND UNLABORED. SAFETY PRECAUTIONS IN PLACE. WILL CONTINUE TO MONITOR
[2019-05-18] MEDS ORDERED: ACETAMINOPHEN 500 MG TABLET PO PRN (06:45)
[2019-05-18] MEDS ORDERED: ACETAMINOPHEN 325 MG TABLET PO PRN (06:45)
[2019-05-18] MEDS ORDERED: BISACODYL 10 MG/SUPPOSITORY RC PRN (06:45)
[2019-05-18] MEDS ORDERED: SENNOSIDES 8.6 MG TABLET PO PRN (06:45)
--- NOTE | 2019-05-18 06:57 | NUR ---
CLOSING NOTES PATIENT AWAKE, WATCHING TV. AOX1. NO SIGNS OF RESPIRATORY DISTRESS AND DISCOMFORT NOTED. DENIES PAIN AT THIS TIME. IV SITE, PATENCY NOTED. CALL LIGHT WITHIN REACH. BED LOCKED AND LOWEST POSITION. BED ALARM ON. SAFETY PRECAUTIONS IN PLACE. ALL NEEDS MET THROUGHOUT THE SHIFT. WILL CONTINUE TO MONITOR UNTIL ENDORSE TO ONCOMING SHIFT NURSE FOR CONTINUITY OF CARE.
--- NOTE | 2019-05-18 07:02 | NUR ---
Nutrition Update Jose Scale 17 noted. Pt admitted for Severe anemia Diet: Regular BMI: 16.6 kg/m2 RD to follow per nutrition care standards.
[2019-05-18] MEDS: LEVOTHYROXINE SODIUM 0.125 MG TABLET PO SCH (07:16)
[2019-05-18] MEDS: LANSOPRAZOLE 30 MG CAPSULE.DR GT SCH (07:16)
[2019-05-18 07:21] LABS: BASOPHILS # (AUTO) 0.1 K/uL (0.0-0.2); EOSINOPHILS # (AUTO) 0.2 K/uL (0.0-0.4); EOSINOPHILS % (AUTO) 4.1 % (0.0-4.0); HEMATOCRIT 33.8 % (36-48); HEMOGLOBIN 11.5 g/dL (12.0-16.0); LYMPHOCYTES # (AUTO) 1.8 K/uL (1.0-5.5); MEAN CORPUSCULAR HEMOGLOBIN 35 pg (27-31); MEAN CORPUSCULAR HGB CONC 34 % (32-36); MEAN CORPUSCULAR VOLUME 104 fL (79.0-98.0); MONOCYTES # (AUTO) 0.2 K/uL (0.0-1.0); MONOCYTES % (AUTO) 4.6 % (1.7-9.3); NEUTROPHILS % (AUTO) 56.3 % (40.0-70.0); PLATELET COUNT (AUTO) 291 K/uL (130-430); RED BLOOD CELL COUNT(AUTO) 3.27 MIL/uL (4.2-6.2); RED CELL DISTRIBUTION WIDTH 29.4 % (9.0-15.0); WHITE BLOOD COUNT (AUTO) 5.4 K/uL (4.8-10.8)
[2019-05-18 07:26] LABS: ALANINE AMINOTRANSFERASE 51 U/L (12-78); ANION GAP 7 (5-15); ASPARTATE AMINOTRANSFERASE 36 U/L (10-37); CALCIUM 8.9 mg/dL (8.4-11.0); CHLORIDE 108 mmol/L (98-107); CREATININE 0.75 mg/dL (0.55-1.30); GLUCOSE 80 mg/dL (70-99); POTASSIUM 4.3 mmol/L (3.5-5.1); SODIUM SERUM 140 mmol/L (136-145); UREA NITROGEN, BLOOD 34 mg/dL (8-21)
[2019-05-18 08:00] VITALS: BP_SYST 143
--- NOTE | 2019-05-18 08:00 | NUR ---
Initial notes- In bed, awake, alert. speak spanish. Ambulate with front wheel walker with supervision. Denies any pain or discomfort. on room air, tolerating well. safety precaution observed. call light in reach. bed alarm on. will monitor.
[2019-05-18 08:08] LABS: TOTAL BILIRUBIN 2.7 mg/dL (0.0-1.0)
[2019-05-18] MEDS: DOCUSATE SODIUM 100 MG CAPSULE PO SCH (08:28)
[2019-05-18] MEDS: FOLIC ACID 1 MG TABLET PO SCH (08:28)
[2019-05-18] MEDS: METOPROLOL SUCCINATE 50 MG TAB.SR.24H (TOPROL XL) PO SCH (08:28)
[2019-05-18] MEDS ORDERED: OMEPRAZOLE Non-Formulary 20 MG CAPSULE.DR PO SCH (09:00)
--- NOTE | 2019-05-18 10:18 | NUR ---
Notes- Assisted to the bathroom and had bowel movement. no distress. complain of being cold. Warm blanket provided. will monitor.
[2019-05-18 12:38] VITALS: BP_SYST 135
--- NOTE | 2019-05-18 12:40 | NUR ---
Notes- Eating lunch. denies any pain or discomfort. no distress noted.
--- NOTE | 2019-05-18 12:59 | NUR ---
Dietitian Recommendations *Recommend: adding Ensure Enlive TID. ONS will provide additional 1050 kcal and 60 gm protein daily. *Recommend Megace to stimulate appetite. *Continue regular diet per MD. Please see Nutritional Assessment LILI, JL
--- NOTE | 2019-05-18 16:04 | NUR ---
rounds- Seen by Dr. lucas at bedside. pt in bed, resting, feels cold. warm blanket provided. Denies any pain or discomfort. will continue to monitor.
[2019-05-18 16:25] VITALS: BP_SYST 138
--- NOTE | 2019-05-18 18:18 | NUR ---
Notes- Resting at this time. No change in assessment. All needs meet through out shift. will endorse
--- NOTE | 2019-05-18 19:30 | NUR ---
OPENING NOTES PATIENT AWAKE, CONFUSED, AND AGITATED AT TIMES. NO SIGNS OF RESPIRATORY DISTRESS NOTED. TRYING TO GET OUT OF THE BED. JAIR LUDWIG, CAME TO INTERPRET WHAT PATIENT IS SAYING IN DIVE[place] '' PATIENT VERBALIZING TO ''GET OUT OF THE ROOM. WILL INFORM MD WITH AGITATION. IV SITE, PATENCY NOTED. CALL LIGHT WITHIN REACH. BED ALARM ON. 3 SIDE RAILS UP. BED LOCKED AND IN LOWEST POSITION. SAFETY PRECAUTIONS IN PLACE. WILL CONTINUE TO MONITOR.
[2019-05-18 20:00] VITALS: BP_SYST 135
--- NOTE | 2019-05-18 20:23 | NUR ---
SPOKE WITH DR. KELLY MINOR MADE AWARE OF PATIENTS BEHAVIOR. GAVE NEW ORDER. WILL CARRY OUT
[2019-05-18] MEDS ORDERED: LORazepam 2 MG/ML VIAL IVP PRN (20:30)
--- NOTE | 2019-05-18 20:46 | NUR ---
MED PASS DUE MEDICATION GIVEN AT THIS TIME, PATIENT TOLERATED WELL. ATIVAN 0.5 MG IVP GIVEN AT THIS TIME FOR AGITATION. SAFETY PRECAUTIONS IN PLACE. WILL CONTINUE TO MONITOR PATIENT
[2019-05-18] MEDS ORDERED: MONTELUKAST 10 MG TABLET PO SCH (21:00)
[2019-05-19] VITALS: BP_SYST 138
[2019-05-19] MEDS: LEVOTHYROXINE SODIUM 0.125 MG TABLET PO SCH (06:13)
[2019-05-19] MEDS: LANSOPRAZOLE 30 MG CAPSULE.DR GT SCH (06:13)
--- NOTE | 2019-05-19 06:49 | NUR ---
CLOSING NOTES PATIENT AWAKE, SITTING IN BED, WATCHING TV. AOX1. CONFUSED AT TIMES. NO SIGNS OF RESPIRATORY DISTRESS AND DISCOMFORT NOTED. DENIES PAIN AT THIS TIME. IV SITE, PATENCY NOTED. CALL LIGHT WITHIN REACH. BED LOCKED AND LOWEST POSITION. BED ALARM ON. SAFETY PRECAUTIONS IN PLACE. ALL NEEDS MET THROUGHOUT THE SHIFT. WILL CONTINUE TO MONITOR UNTIL ENDORSE TO ONCOMING SHIFT NURSE FOR CONTINUITY OF CARE.
[2019-05-19 07:06] LABS: BASOPHILS # (AUTO) 0.1 K/uL (0.0-0.2); BASOPHILS % (AUTO) 1.1 % (0.0-2.0); EOSINOPHILS # (AUTO) 0.3 K/uL (0.0-0.4); EOSINOPHILS % (AUTO) 5.5 % (0.0-4.0); HEMATOCRIT 33.7 % (36-48); HEMOGLOBIN 11.4 g/dL (12.0-16.0); LYMPHOCYTES # (AUTO) 2.1 K/uL (1.0-5.5); LYMPHOCYTES % (AUTO) 41.7 % (20.5-51.5); MEAN CORPUSCULAR HEMOGLOBIN 35 pg (27-31); MEAN CORPUSCULAR HGB CONC 34 % (32-36); MEAN CORPUSCULAR VOLUME 104 fL (79.0-98.0); MONOCYTES # (AUTO) 0.3 K/uL (0.0-1.0); MONOCYTES % (AUTO) 6.4 % (1.7-9.3); NEUTROPHILS # (AUTO) 2.3 K/uL (1.8-7.7); NEUTROPHILS % (AUTO) 45.3 % (40.0-70.0); PLATELET COUNT (AUTO) 265 K/uL (130-430); RED BLOOD CELL COUNT(AUTO) 3.24 MIL/uL (4.2-6.2); RED CELL DISTRIBUTION WIDTH 28.5 % (9.0-15.0)
--- NOTE | 2019-05-19 07:20 | NUR ---
received patient aaox 1. has iv access on the lt forearm #20. saline lock. lungs bilaterally momo. abdomen soft and non distended. very needy. bed low position, alarmed and locked.
[2019-05-19 07:46] LABS: ALANINE AMINOTRANSFERASE 47 U/L (12-78); ALBUMIN 2.9 g/dL (3.4-4.8); ANION GAP 6 (5-15); ASPARTATE AMINOTRANSFERASE 36 U/L (10-37); CALCIUM 8.8 mg/dL (8.4-11.0); CHLORIDE 109 mmol/L (98-107); CREATININE 0.81 mg/dL (0.55-1.30); GLUCOSE 86 mg/dL (70-99); POTASSIUM 4.5 mmol/L (3.5-5.1); SODIUM SERUM 140 mmol/L (136-145); TOTAL BILIRUBIN 1.2 mg/dL (0.0-1.0); UREA NITROGEN, BLOOD 34 mg/dL (8-21)
--- NOTE | 2019-05-19 08:00 | NUR ---
assisted to the bathroom had urinated x 1. no bm noted.
[2019-05-19 08:11] LABS: TOTAL IRON BIND. CAPACITY 125 ug/dL (250-450)
[2019-05-19 08:22] VITALS: BP_SYST 164
--- NOTE | 2019-05-19 08:39 | NUR ---
patient eating breakfast. sitting on the side of the bed. no sob nor pain noted.
[2019-05-19] MEDS: DOCUSATE SODIUM 100 MG CAPSULE PO SCH (08:56)
[2019-05-19] MEDS: METOPROLOL SUCCINATE 50 MG TAB.SR.24H (TOPROL XL) PO SCH (08:56)
[2019-05-19] MEDS: FOLIC ACID 1 MG TABLET PO SCH (08:56)
--- NOTE | 2019-05-19 08:57 | NUR ---
due medication given
--- NOTE | 2019-05-19 11:32 | NUR ---
Discharge Planning: DCP received room from [facility] (f [phone] p [phone]) Rm 210A, transportation arranged with [facility] ([phone]) 1:30pm P/U . Nurse aware patient packet taken to nurse station.
--- NOTE | 2019-05-19 11:50 | NUR ---
PATIENT REFUSED TO HAVE PICTURE TAKEN ON THE BUTT. SAID NO. JUST PLACED THE OPTIFOAM DRESSING ON IT. APPLY Z GUARD. DRY/INTACT. NO DRAINAGE NOR ODOR NOTED.
--- NOTE | 2019-05-19 12:00 | NUR ---
PATIENT EATING LUNCH
[2019-05-19 12:08] VITALS: BP_SYST 136
--- NOTE | 2019-05-19 12:15 | NUR ---
SHAGGY SAID THAT EYEGLASSES IS WITH THE [facility]. VERBALIZED.
--- NOTE | 2019-05-19 13:00 | NUR ---
ASISSTED TO THE BATHROOM. HAD VOIDED X 2
--- NOTE | 2019-05-19 13:50 | NUR ---
PATIENT IN STABLE CONDITION SQL PROGRAMMER BY [facility], [facility] BAND REMOVED IV ACCESS REMOVED, DISCHARGE SUMMARY SIGNED. ALL BELONGINGS BROUGHT BY AMBULANCE, DENTURES WORE BY THE PATIENT AND EYEGLASSES LEFT IN [facility]IA [facility].
[2019-05-19] MEDS ORDERED: DEFEROXAMINE MESYLATE IV SCH (16:00)
[2019-05-19] MEDS ORDERED: NS IV SCH (16:00)
[2019-05-19] MEDS ORDERED: EPOETIN ALFA 3,000 UNITS/ML VIAL SUBCUT SCH (17:00)
[2019-05-20 15:14] LABS: FERRITIN 6556 ng/mL (15-150)
== END 2019-05-19 13:50 | DRG 812 ==
LOC: SED 14:36 → SMU 18:17
PROVIDERS: ADMIT Internal Medicine; ATTEND Internal Medicine
PROC: 30233N1 Transfusion of Nonautologous Red Blood Cells into Peripheral Vein, Percutaneous Approach (ICD-10-PCS; principal; 2019-05-17)
DX: D46.9 Myelodysplastic syndrome, unspecified (principal); E44.1 Mild protein-calorie malnutrition; E86.0 Dehydration; E11.9 Type 2 diabetes mellitus without complications; F03.90 Unspecified dementia, unspecified severity, without behavioral disturbance, psychotic disturbance, mood disturbance, and anxiety; I10 Essential (primary) hypertension; J44.9 Chronic obstructive pulmonary disease, unspecified; Z79.899 Other long term (current) drug therapy
CPT/HCPCS: 36415; 71045; 80053; 81000-TC; 82607; 82728; 83540-TC; 83550-TC; 83605; 84484; 85025; 85610-TC; 85730-TC; 86886; 86900; 86901; 86920; 87040-TC; 87081; 87086; 93005; 99285; J0895; J2060; J7040; P9021

== ENCOUNTER 2019-06-09 14:18 | Inpatient (IN) | payer OTHER, MEDICAID ==
[~2019-06-09] VITALS: Ht 149.9 cm; Wt 42.5 kg
[2019-06-09 14:40] VITALS: BP_SYST 106
--- NOTE | 2019-06-09 14:40 | NUR ---
PATIENT TO ER #3
--- NOTE | 2019-06-09 14:43 | NUR ---
Patient brought in by ambulance to the ED for abnormal labs started today. Denied any chest pain or shortness of breath. Denied any fevers, nausea, vomiting, or chills. Patient is alert and oriented x2, respirations even and unlabored, speaking in full sentences - mandarin speaker, ambulating with a steady gait. VSS, pain level 0/10. Informed of wait time. Instructed to notify ED staff for any changes in condition or worsening of symptoms. Patient verbalized understanding.
--- NOTE | 2019-06-09 14:45 | NUR ---
ECG done at bedside as ordered by Dr. Rahman. Patient tolerated the procedure well. ER Physician given copy of EKG for review.
--- NOTE | 2019-06-09 14:50 | NUR ---
ER Dr. Rahman at bedside examining patient.
--- NOTE | 2019-06-09 15:05 | NUR ---
# 18 gauge angiocath placed to LAC. Use of asceptic technique. Opsite placed over site. Blood return noted. Blood for lab drawn from site. Flushed with 10 cc of normal saline. No evidence of infiltration noted. Patient tolerated well.
[2019-06-09 15:27] LABS: BASOPHILS # (AUTO) 0.1 K/uL (0.0-0.2); BASOPHILS % (AUTO) 1.3 % (0.0-2.0); EOSINOPHILS # (AUTO) 0.2 K/uL (0.0-0.4); EOSINOPHILS % (AUTO) 3.7 % (0.0-4.0); HEMATOCRIT 25.7 % (36-48); HEMOGLOBIN 8.4 g/dL (12.0-16.0); LYMPHOCYTES # (AUTO) 1.4 K/uL (1.0-5.5); LYMPHOCYTES % (AUTO) 29.7 % (20.5-51.5); MEAN CORPUSCULAR HEMOGLOBIN 36 pg (27-31); MEAN CORPUSCULAR HGB CONC 33 % (32-36); MEAN CORPUSCULAR VOLUME 111 fL (79.0-98.0); MONOCYTES # (AUTO) 0.3 K/uL (0.0-1.0); MONOCYTES % (AUTO) 7.5 % (1.7-9.3); NEUTROPHILS # (AUTO) 2.7 K/uL (1.8-7.7); NEUTROPHILS % (AUTO) 57.8 % (40.0-70.0); PLATELET COUNT (AUTO) 253 K/uL (130-430); RED BLOOD CELL COUNT(AUTO) 2.32 MIL/uL (4.2-6.2); RED CELL DISTRIBUTION WIDTH 28.1 % (9.0-15.0); WHITE BLOOD COUNT (AUTO) 4.6 K/uL (4.8-10.8)
--- NOTE | 2019-06-09 15:29 | NUR ---
Reconciled meds. Belonging's list done.
[2019-06-09 15:36] LABS: CHLORIDE 103 mmol/L (98-107); CREATININE 1.18 mg/dL (0.55-1.30); GLUCOSE 153 mg/dL (70-99); POTASSIUM 5.6 mmol/L (3.5-5.1); SODIUM SERUM 136 mmol/L (136-145); UREA NITROGEN, BLOOD 56 mg/dL (8-21)
[2019-06-09 15:39] LABS: PROTHROMBIN TIME 9.9 SECS (9.5-12.5)
[2019-06-09 15:41] LABS: ALANINE AMINOTRANSFERASE 47 U/L (12-78); ALBUMIN 3.4 g/dL (3.4-4.8); ASPARTATE AMINOTRANSFERASE 33 U/L (10-37); TOTAL BILIRUBIN 0.8 mg/dL (0.0-1.0)
--- NOTE | 2019-06-09 15:45 | NUR ---
Patient used the bedside commode. Urine specimen collected.
[2019-06-09 15:47] LABS: ANION GAP < 3 (5-15)
--- NOTE | 2019-06-09 16:10 | NUR ---
Administered Lokelma PO and NS 500mL as ordered by Dr. Mendiola. Patient tolerated the medication well. See eMAR for details.
[2019-06-09] MEDS ORDERED: NS 500 ML IV ONE (16:15)
[2019-06-09] MEDS ORDERED: SODIUM ZIRCONIUM CYCLOSILICATE 10 GM POWD.PACK PO ONE (16:15)
[2019-06-09 16:17] LABS: BILIRUBIN,URINE NEGATIVE (NEGATIVE); BLOOD, URINE NEGATIVE (NEGATIVE); CLARITY/URINE CLEAR (CLEAR); COLOR,URINE YELLOW (YELLOW); GLUCOSE,URINE NEGATIVE (NEGATIVE); KETONES,URINE NEGATIVE (NEGATIVE); LEUKOCYTE ESTERASE ,URINE NEGATIVE (NEGATIVE); NITRITE, URINE NEGATIVE (NEGATIVE); PROTEIN URINE 1+ (NEGATIVE); UROBILINOGEN,URINE 0.2 (0.2-1.0)
--- NOTE | 2019-06-09 17:24 | NUR ---
Received admiting orders from Dr. Jones. Spoke with Yenni about the bed placement.
[2019-06-09] MEDS ORDERED: D5/0.45 NS 500 ML IV ONE (17:30)
[2019-06-09 17:41] LABS: BACTERIA,URINE FEW /HPF (None Seen); MUCUS,URINE None Seen /LPF (None Seen); RBC,URINE NONE SEEN /HPF (0-3); WBC,URINE 0-3 /HPF (0-3)
--- NOTE | 2019-06-09 18:03 | NUR ---
Patient will be admitted to care of DR. OLIVERA. Admitted to TELE unit. Will go to room 121C. Belongings list completed. Complete and up to date summary report printed. SBAR report to be given at bedside with opportunity for questions.
[2019-06-09 18:10] VITALS: BP_SYST 143
--- NOTE | 2019-06-09 18:10 | NUR ---
ADMISSION NOTE PT RECEIVED VIA GURNEY BY ER NURSE. PT AMBULATES WITH ASSIST TO BED. PT SPEAKS MANDARIN. PT EDUCATED SENIOR PRODUCT ANALYST LIGHT. BED IN LOW AND LOCKED POSITION WITH BED ALARM ON.
--- NOTE | 2019-06-09 19:47 | NUR ---
INITIAL NOTES Received handoff report from offgoing nurse at the bedside. Patient is resting comfortably in bed, AAOx1. Positive affect. No SOB, no acute distress, no signs of pain or facial grimacing. IV site intact, LAC #20g, dressing intact, saline locked. Bed is locked, lowest position, 2x side rails up, bed alarm is on. Call light is within reach. Will continue with plan of care.
[2019-06-09 20:00] VITALS: BP_SYST 135
[2019-06-09 20:14] VITALS: BP_SYST 143
--- NOTE | 2019-06-09 21:45 | NUR ---
Currently watching television. No acute distress noted.
--- NOTE | 2019-06-09 22:48 | NUR ---
Resting comfortably in bed, eyes closed. Breathing even and unlabored with visible chest rise and fall noted. No SOB, no acute distress, no signs of pain or facial grimacing noted. Bed is locked, lowest position, 2x side rails up, bed alarm is on. Call light is within reach.
[2019-06-10 00:05] VITALS: BP_SYST 149
--- NOTE | 2019-06-10 01:00 | NUR ---
Patient had episode of urinary incontinence. Bed bath provided as needed. Patient is now clean and dry, resting comfortably in bed.
[2019-06-10] MEDS ORDERED: ACETAMINOPHEN 500 MG TABLET PO PRN (03:00)
[2019-06-10] MEDS ORDERED: ACETAMINOPHEN 325 MG TABLET PO PRN (03:00)
--- NOTE | 2019-06-10 03:26 | NUR ---
Patient resting comfortably in bed, eyes closed. Breathing even and unlabored with visible chest rise and fall noted. No SOB, no acute distress, no signs of pain or facial grimacing noted. Bed is locked, lowest position, 2x side rails up, bed alarm is on. Call light within reach.
[2019-06-10 04:53] LABS: BASOPHILS % (AUTO) 1.1 % (0.0-2.0); EOSINOPHILS # (AUTO) 0.2 K/uL (0.0-0.4); EOSINOPHILS % (AUTO) 4.8 % (0.0-4.0); HEMATOCRIT 24.3 % (36-48); LYMPHOCYTES # (AUTO) 1.8 K/uL (1.0-5.5); LYMPHOCYTES % (AUTO) 50.1 % (20.5-51.5); MEAN CORPUSCULAR HEMOGLOBIN 36 pg (27-31); MEAN CORPUSCULAR HGB CONC 33 % (32-36); MEAN CORPUSCULAR VOLUME 109 fL (79.0-98.0); MONOCYTES # (AUTO) 0.2 K/uL (0.0-1.0); MONOCYTES % (AUTO) 4.1 % (1.7-9.3); NEUTROPHILS # (AUTO) 1.5 K/uL (1.8-7.7); NEUTROPHILS % (AUTO) 39.9 % (40.0-70.0); PLATELET COUNT (AUTO) 223 K/uL (130-430); RED BLOOD CELL COUNT(AUTO) 2.23 MIL/uL (4.2-6.2); RED CELL DISTRIBUTION WIDTH 28.4 % (9.0-15.0); WHITE BLOOD COUNT (AUTO) 3.7 K/uL (4.8-10.8)
[2019-06-10 04:59] LABS: ALANINE AMINOTRANSFERASE 36 U/L (12-78); ALBUMIN 2.7 g/dL (3.4-4.8); ANION GAP 6 (5-15); ASPARTATE AMINOTRANSFERASE 25 U/L (10-37); CALCIUM 8.4 mg/dL (8.4-11.0); CHLORIDE 107 mmol/L (98-107); CREATININE 0.88 mg/dL (0.55-1.30); GLUCOSE 90 mg/dL (70-99); POTASSIUM 4.2 mmol/L (3.5-5.1); SODIUM SERUM 143 mmol/L (136-145); TOTAL BILIRUBIN 1.1 mg/dL (0.0-1.0); UREA NITROGEN, BLOOD 37 mg/dL (8-21)
[2019-06-10] MEDS: LEVOTHYROXINE SODIUM 0.125 MG TABLET PO SCH (06:04)
--- NOTE | 2019-06-10 06:37 | NUR ---
Closing Notes Patient is resting comfortably in bed, AAOx1, positive affect, smiling. No SOB, no acute distress, no signs of pain or facial grimacing noted. IV site intact, dressing clean and dry, currently infusing IVF per MD order, see eMAR for details. Bed is locked, lowest position, 2x side rails up, bed alarm is on. Call light is within reach. Fall and safety precautions maintained. All needs have been met during this shift. Will endorse care to oncoming dayshift nurse.
--- NOTE | 2019-06-10 07:30 | NUR ---
OPENING NOTE Patient resting in bed. Patient awake and OrientedX1. Patient has D5 1/2 normal saline running with 40ML/hour on left AC 18 gauge without any signs of infiltration. I.V site is patent and skin is intact. place call light within reach and bed in the lowest position. put bed alarm on. Mandarin speaking.
[2019-06-10 08:24] VITALS: BP_SYST 154
--- NOTE | 2019-06-10 08:30 | NUR ---
BEDSIDE COMMODE Assist patient to use bedside commode. Void and safely come back to bed.
[2019-06-10] MEDS: DOCUSATE SODIUM 100 MG CAPSULE PO SCH (08:39)
[2019-06-10] MEDS: METOPROLOL SUCCINATE 50 MG TAB.SR.24H (TOPROL XL) PO SCH (08:40)
[2019-06-10] MEDS: PYRIDOXINE HCL 50 MG TABLET PO SCH (08:40)
[2019-06-10] MEDS: PANTOPRAZOLE SODIUM 40 MG TAB PO SCH (08:41)
[2019-06-10] MEDS: FOLIC ACID 1 MG TABLET PO SCH (08:41)
[2019-06-10] MEDS: ISOSORBIDE DINITRATE 10 MG TABLET (ISORDIL) PO SCH ×3 (08:41→20:59)
[2019-06-10] MEDS ORDERED: FERROUS SULFATE 325 MG TABLET.DR PO SCH (09:00)
[2019-06-10] MEDS ORDERED: OMEPRAZOLE Non-Formulary 20 MG CAPSULE.DR PO SCH (09:00)
--- NOTE | 2019-06-10 11:24 | NUR ---
Nutrition Update Jose Scale 18 noted. Pt admitted for GI bleed, anemia. Diet: [facility] BMI: 18.9 kg/m2 RD to follow per nutrition care standards.
[2019-06-10 12:45] VITALS: BP_SYST 116
--- NOTE | 2019-06-10 14:00 | NUR ---
RN ROUNDS Patient is resting in bed. Patient ate lunch well. Patient denied pain at this time. D5 1/2 normal saline running via 18 gauge I.V on left arm without infiltration. I.V site is patent and skin is intact. place call light within reach and bed in the lowest position. put bed alarm on.
--- NOTE | 2019-06-10 14:49 | NUR ---
QUALITY MANAGEMENT COORDINATOR attempted to meet with Pt. at bed side for DCPA assessment and SS contact, she was not well oriented and noted to be monolingual Japanese- Mandarin Speaking. Collateral information obtained from [facility] . Pt. is a senior living resident there, initially brought in to facility 02/10/2017, RN described Pt. as oriented x3 and able to communicate her needs in her primary language. Pt. is ambulatory, has a W/C, does not utilize frequently. Grandson is person to notify Josue Ramírez [phone]. Pt. has [facility] and [facility]. PCP is Dr. Galicia. [facility] indicated that Pts bed is on hold. QUALITY MANAGEMENT COORDINATOR spoke with grandflorian Salas who indicated that he would like Pt to return to previous facility upon discharge. Tentative DC plan is to return to this facility once stabilized. DCP/ SS/ CM will remain available
--- NOTE | 2019-06-10 15:30 | NUR ---
TRANSFER CARE Transfer care to [facility] and report given patient stable condition.
--- NOTE | 2019-06-10 15:35 | NUR ---
rounds done. patient speaks mandarin. verbalized wants to sleep. assisted to bedside commode
[2019-06-10 16:54] VITALS: BP_SYST 141
--- NOTE | 2019-06-10 17:30 | NUR ---
due meds given.
--- NOTE | 2019-06-10 18:00 | NUR ---
assists her to bedside commode. made comfortable.
--- NOTE | 2019-06-10 18:24 | NUR ---
patient eating dinner at this time.
--- NOTE | 2019-06-10 19:40 | NUR ---
endorsed to incoming nurse Gisella LUKE
[2019-06-10 20:06] VITALS: BP_SYST 119
[2019-06-10 20:08] VITALS: BP_SYST 163
[2019-06-10] MEDS: MONTELUKAST 10 MG TABLET PO SCH (20:57)
--- NOTE | 2019-06-10 21:00 | NUR ---
received report @ start of shift, alert with confusion, respirations even and unlabored, room air,18g saline lock in LAC, patent and intact,voiding in small frequent amounts of clear yellow urine skin intact ,denies pain, SR'S up X's 3, call light within reach and bed in low position, will continue to monitor.
--- NOTE | 2019-06-10 23:53 | NUR ---
CONSULTATION PAGED/CALLED Reason for Consultation: PANCYTOPENIA Person Who was Notified: DOCTOR FERGUSON SAW PT ALREADY Consulting Physician: DR. FERGUSON Anodize Machine Operator Specialty: Ordering Physician:Antonio OLIVERA
--- NOTE | 2019-06-11 | NUR ---
incontinent of B/B kept clean and dry, turned and repositioned, denies pain will continue to monitor. Addendum: 06/11/19 at 2556 by Wander Shelton RN incorrect data charted
--- NOTE | 2019-06-11 | NUR ---
resting quietly in bed, easily aroused, voiding clear yellow urine per BSC, denies pain, self turns and repositions self ad andrew, will continue to monitor.
[2019-06-11 04:00] VITALS: BP_SYST 164
--- NOTE | 2019-06-11 04:00 | NUR ---
continues to rest quietly in bed with eyes closed, denies pain, uses BSC, voiding clear yellow urine, will continue to monitor.
--- NOTE | 2019-06-11 04:00 | NUR ---
no noted changes in condition, remains alert with confusion, incontinent of urine, kept clean and dry, turned and repositioned, will continue to monitor. Addendum: 06/11/19 at 0631 by Wander Shelton RN incorrect data charted.
[2019-06-11 06:15] LABS: BASOPHILS % (AUTO) 0.9 % (0.0-2.0); EOSINOPHILS # (AUTO) 0.2 K/uL (0.0-0.4); EOSINOPHILS % (AUTO) 4.2 % (0.0-4.0); HEMATOCRIT 22.6 % (36-48); HEMOGLOBIN 7.5 g/dL (12.0-16.0); LYMPHOCYTES # (AUTO) 1.8 K/uL (1.0-5.5); LYMPHOCYTES % (AUTO) 41.9 % (20.5-51.5); MEAN CORPUSCULAR HEMOGLOBIN 37 pg (27-31); MEAN CORPUSCULAR HGB CONC 33 % (32-36); MEAN CORPUSCULAR VOLUME 110 fL (79.0-98.0); MONOCYTES # (AUTO) 0.2 K/uL (0.0-1.0); MONOCYTES % (AUTO) 5.5 % (1.7-9.3); NEUTROPHILS % (AUTO) 47.5 % (40.0-70.0); PLATELET COUNT (AUTO) 214 K/uL (130-430); RED BLOOD CELL COUNT(AUTO) 2.05 MIL/uL (4.2-6.2); WHITE BLOOD COUNT (AUTO) 4.3 K/uL (4.8-10.8)
[2019-06-11 06:25] LABS: ALANINE AMINOTRANSFERASE 43 U/L (12-78); ALBUMIN 2.8 g/dL (3.4-4.8); ANION GAP 3 (5-15); ASPARTATE AMINOTRANSFERASE 27 U/L (10-37); CALCIUM 8.8 mg/dL (8.4-11.0); CHLORIDE 105 mmol/L (98-107); GLUCOSE 84 mg/dL (70-99); POTASSIUM 4.3 mmol/L (3.5-5.1); SODIUM SERUM 135 mmol/L (136-145); TOTAL BILIRUBIN 1.2 mg/dL (0.0-1.0); UREA NITROGEN, BLOOD 37 mg/dL (8-21)
[2019-06-11] MEDS: LEVOTHYROXINE SODIUM 0.125 MG TABLET PO SCH (06:55)
[2019-06-11 08:00] VITALS: BP_SYST 118
--- NOTE | 2019-06-11 08:00 | NUR ---
ASSUMPTION OF CARE: RECEIVED PT A/A/OX3, DX: RISK FOR FLUID VOLUME DEFICIT, R/T GI BLEED, ANEMIA, H/H=7.5/22.6, ASYMPTOMATIC, VSS, PULSES ARE PALPABLE, COLOR IS GOOD, SKIN WARM, DRY TO TOUCH, NO S/S OF DISTRESS, BREATH SOUNDS ARE CLEAR, BREATHING UNLABORED, IV SITE INTACT, PATENT, NO REDNESS OR SWELLING, ORIENTED TO UNIT, FORGETFUL AT TIME, CALL LIGHT WITHIN REACH, WILL CONT' TO MONITOR AND ASSESS.
--- NOTE | 2019-06-11 09:00 | NUR ---
SURGICAL SCHEDULER: MORNING MEDS GIVEN, PER ORDERED BY Lauren, TOLERATED WELL, WILL CONT' TO MONITOR AND ASSESS.
[2019-06-11] MEDS: ISOSORBIDE DINITRATE 10 MG TABLET (ISORDIL) PO SCH ×3 (09:17→21:35)
[2019-06-11] MEDS: DOCUSATE SODIUM 100 MG CAPSULE PO SCH (09:17)
[2019-06-11] MEDS: PANTOPRAZOLE SODIUM 40 MG TAB PO SCH (09:17)
[2019-06-11] MEDS: PYRIDOXINE HCL 50 MG TABLET PO SCH (09:18)
[2019-06-11] MEDS: FOLIC ACID 1 MG TABLET PO SCH (09:18)
[2019-06-11] MEDS: METOPROLOL SUCCINATE 50 MG TAB.SR.24H (TOPROL XL) PO SCH (09:18)
[2019-06-11 09:59] LABS: RED CELL DISTRIBUTION WIDTH 28.8 % (9.0-15.0)
[2019-06-11 12:00] VITALS: BP_SYST 142
--- NOTE | 2019-06-11 12:00 | NUR ---
NURSES NOTES: PT ASLEEP IN POSITION OF COMFORT, EASILY AROUSED VIA VERBAL STIMULI, VS WNL, NO DISTRESS NOTED, REMAINS STABLE AT THIS TIME, CALL LIGHT WITHIN REACH, WILL CONT' TO MONITOR AND ASSESS.
[2019-06-11] MEDS ORDERED: SODIUM PHOSPHATE,MONO-DIBASIC 133 ML ENEMA RC ONE (13:45)
[2019-06-11] MEDS: SENNOSIDES 8.6 MG TABLET PO PRN (15:03)
[2019-06-11 16:00] VITALS: BP_SYST 134
--- NOTE | 2019-06-11 16:00 | NUR ---
NURSES NOTES: PT A/A/OX2-3, WATCHING TELEVISION WITH NO DISTRESS NOTED, NO C/O PAIN, NEEDS MET, WILL CONT' WITH POC.
[2019-06-11] MEDS ORDERED: EPOETIN ALFA 10,000 UNITS/ML VIAL SUBCUT SCH (17:00)
[2019-06-11] MEDS ORDERED: EPOETIN ALFA 3,000 UNITS/ML VIAL SUBCUT SCH (17:00)
--- NOTE | 2019-06-11 18:00 | NUR ---
END OF SHIFT: NO CHANGES NOTED, REMAINS STABLE, WILL ENDORSE TO MOTORIZED SQUAD SERGEANT NURSE.
--- NOTE | 2019-06-11 19:35 | NUR ---
Opening Note Received patient resting in bed, w/ eyes closaed. No s/sx of distress, no SOB and nonlabored breathing on room air. IV is SL to LAC. Bed is locked in lowest position, side rails up 3x. Call light is W/in reach, updated board.
[2019-06-11 20:00] VITALS: BP_SYST 135
[2019-06-11] MEDS: MONTELUKAST 10 MG TABLET PO SCH (21:35)
[2019-06-11] MEDS: BISACODYL 10 MG/SUPPOSITORY RC PRN (21:35)
--- NOTE | 2019-06-11 21:42 | NUR ---
medication / suppository Due medication given; patient took tablets and swallowed with water. She was given a suppository, procedure explained; patient understood and she positioned self to left side, tolerated. Safety precautions in place, call light near and bed alarm on.
--- NOTE | 2019-06-11 22:30 | NUR ---
Stool sample Patient assisted to bedside commode and she had a bowel movement. The stool sample was collected and taken to lab. Patient is resting in bed and is in no distress, safety precautions in place.
--- NOTE | 2019-06-12 00:19 | NUR ---
sleeping Patient is resting in side posture,w/ eyes closed. No SOB or distress noted. Safety precautions in place and call light near.
[2019-06-12 01:12] VITALS: BP_SYST 140
--- NOTE | 2019-06-12 02:10 | NUR ---
Resting Patient is resting in comfortable position, no s/sx of distress, safety precautions in place and call light near.
--- NOTE | 2019-06-12 03:40 | NUR ---
OOB Awake and out of bed for use of bedside commode, assisted by nurse trust administrative assistant and returned to bed.
--- NOTE | 2019-06-12 06:50 | NUR ---
closing note Patient is awake and was given her due medication, Synthroid. She took tablet and swallowed w/out difficulty. Presently no s/sx of distress. safety precautions in place and call light w/in reach. Will endorse care to day shift nurse.
[2019-06-12] MEDS: LEVOTHYROXINE SODIUM 0.125 MG TABLET PO SCH (07:00)
[2019-06-12 07:21] LABS: BASOPHILS % (AUTO) 0.8 % (0.0-2.0); EOSINOPHILS # (AUTO) 0.2 K/uL (0.0-0.4); HEMATOCRIT 23.4 % (36-48); HEMOGLOBIN 7.8 g/dL (12.0-16.0); LYMPHOCYTES # (AUTO) 1.8 K/uL (1.0-5.5); LYMPHOCYTES % (AUTO) 49.1 % (20.5-51.5); MEAN CORPUSCULAR HEMOGLOBIN 37 pg (27-31); MEAN CORPUSCULAR HGB CONC 33 % (32-36); MEAN CORPUSCULAR VOLUME 110 fL (79.0-98.0); MONOCYTES # (AUTO) 0.1 K/uL (0.0-1.0); MONOCYTES % (AUTO) 2.8 % (1.7-9.3); NEUTROPHILS # (AUTO) 1.6 K/uL (1.8-7.7); NEUTROPHILS % (AUTO) 42.3 % (40.0-70.0); PLATELET COUNT (AUTO) 219 K/uL (130-430); RED BLOOD CELL COUNT(AUTO) 2.13 MIL/uL (4.2-6.2); RED CELL DISTRIBUTION WIDTH 28.8 % (9.0-15.0); WHITE BLOOD COUNT (AUTO) 3.7 K/uL (4.8-10.8)
[2019-06-12 07:39] VITALS: BP_SYST 149
[2019-06-12] MEDS: METOPROLOL SUCCINATE 50 MG TAB.SR.24H (TOPROL XL) PO SCH (08:55)
[2019-06-12] MEDS: PYRIDOXINE HCL 50 MG TABLET PO SCH (08:55)
[2019-06-12] MEDS: PANTOPRAZOLE SODIUM 40 MG TAB PO SCH (08:55)
[2019-06-12] MEDS: BISACODYL 10 MG/SUPPOSITORY RC PRN (08:55)
[2019-06-12] MEDS: DOCUSATE SODIUM 100 MG CAPSULE PO SCH (08:55)
[2019-06-12] MEDS: SENNOSIDES 8.6 MG TABLET PO PRN (08:55)
[2019-06-12] MEDS: FOLIC ACID 1 MG TABLET PO SCH (08:56)
[2019-06-12] MEDS: ISOSORBIDE DINITRATE 10 MG TABLET (ISORDIL) PO SCH ×3 (08:56→21:51)
--- NOTE | 2019-06-12 11:34 | NUR ---
Assist patient to sink. Patient also able to perform denture care. She is mostly independent ambulating only needs supervision and assist when transferring. Given suppository bisacodyl for bowel regimen. Ashkan Sommers RN
--- NOTE | 2019-06-12 11:59 | NUR ---
Patient up to bedside commode. Ashkan Sommers RN
[2019-06-12 12:11] VITALS: BP_SYST 135
[2019-06-12 16:28] VITALS: BP_SYST 138
--- NOTE | 2019-06-12 19:30 | NUR ---
Opening Notes Received report. Patient is sitting up in bed. No signs of distress noted. Breathing is even and unlabored. Assisted patient to bedside commode. Patient back in bed. Patient tolerated well. No other needs at this time. Bed is in the lowest position, with wheels locked. Call light within reach. Side rails up X3.
--- NOTE | 2019-06-12 19:37 | NUR ---
Handoff with team registered nurses for next shift, Lakia. Ashkan Sommers RN
[2019-06-12 20:00] VITALS: BP_SYST 124
[2019-06-12] MEDS: MONTELUKAST 10 MG TABLET PO SCH (21:50)
--- NOTE | 2019-06-12 21:50 | NUR ---
Medications Administered patient scheduled medications. Educated patient on action and side effects of medication. Patient tolerated medications well. No other needs at this time. Bed is in the lowest position, with wheels locked. Call light within reach. Bed rails up X3.
--- NOTE | 2019-06-12 23:45 | NUR ---
RN Rounds Assisted patient to BSC. Tolerated transfer well. Safely assisted patient back into bed. Patient is now resting comfortably in bed, with no signs of distress noted. No other needs at this time. Bed is in the lowest position, with wheels locked. Call light within reach and sitter at bed side. Bed rails up X3.
[2019-06-13 00:53] VITALS: BP_SYST 124
--- NOTE | 2019-06-13 01:45 | NUR ---
RN Rounds Assisted patient to BSC, tolerated well. Patient back safely to bed. Resting comfortably. No signs of distress noted. Breathing is even and unlabored. No other needs at this time. Bed is in the lowest position with wheels locked. Side rails up X 3. Call light within reach.
--- NOTE | 2019-06-13 03:18 | NUR ---
RN Rounds Assisted patient to BSC and back to bed safely. No other needs at this time. Patient is resting comfortably. No signs of distress. Call light within reach. Bed in the lowest position with wheels locked. SIde rails up X3.
--- NOTE | 2019-06-13 05:18 | NUR ---
RN rounds Patient awake and wanting RN to secure IV site with tape. RN removed old dressing, cleaned site and redressed with transparent dressing. IV site flushed and patent. Patient tolerated well. No other needs at this time. Patient is resting comfortably. No signs of distress. Call light within reach. Bed in the lowest position with wheels locked. SIde rails up X3.
--- NOTE | 2019-06-13 06:11 | NUR ---
Current blood glucose level is 87
--- NOTE | 2019-06-13 06:39 | NUR ---
Closing NOtes Patient is sleeping at this time, no signs of distress noted. Breathing is even and unlabored. IV to the Left forearm is patent and intact. No other needs at this time. Patient is resting comfortably. No signs of distress. Call light within reach. Bed in the lowest position with wheels locked. SIde rails up X3. Will endorse care to dayshift RN
[2019-06-13] MEDS: LEVOTHYROXINE SODIUM 0.125 MG TABLET PO SCH (06:45)
--- NOTE | 2019-06-13 07:15 | NUR ---
RECEIVED PATIENT AAO X 2-3. SPEAKS CANTONESE. LUNGS BILATERALLY CLEAR. ABDOMEN SOFT AND NON DISTENDED. HAS IV ACCESS ON THE LEFT AC #18 SALINE LOCK. VITALS SIGNS STABLE. AFEBRILE. BED LOW POSITION, ALARMED AND LOCKED. CALL LIGHTS WITHIN REACH. INSTRUCTED TO CALL FOR ASSISTANCE. NO PAIN SOB NOR COMPLAINED NOTED. WILL CONTINUE TO MONITOR PATIENTS STATUS
[2019-06-13 08:56] VITALS: BP_SYST 134
--- NOTE | 2019-06-13 09:00 | NUR ---
due medication given as ordered.
[2019-06-13] MEDS: PYRIDOXINE HCL 50 MG TABLET PO SCH (09:04)
[2019-06-13] MEDS: FOLIC ACID 1 MG TABLET PO SCH (09:04)
[2019-06-13] MEDS: METOPROLOL SUCCINATE 50 MG TAB.SR.24H (TOPROL XL) PO SCH (09:11)
[2019-06-13] MEDS: ISOSORBIDE DINITRATE 10 MG TABLET (ISORDIL) PO SCH ×3 (09:12→21:09)
[2019-06-13] MEDS: DOCUSATE SODIUM 100 MG CAPSULE PO SCH (09:12)
[2019-06-13] MEDS: PANTOPRAZOLE SODIUM 40 MG TAB PO SCH (09:12)
--- NOTE | 2019-06-13 11:23 | NUR ---
Discharge Planning: [facility] faxed pt referral to [facility] ([phone] p [phone]) DCP to follow up. Addendum: 06/13/19 at 1537 by Debbi BARDALES JENNIFER followed up Vonnie olguin nurse at [facility] ([phone] p [phone]) she will call with room, JENNIFER to follow up.
[2019-06-13 12:00] VITALS: BP_SYST 120
--- NOTE | 2019-06-13 12:00 | NUR ---
had 100% of food consumed no problems noted.
--- NOTE | 2019-06-13 13:00 | NUR ---
patient went to sleep till 1530pm. then wake up medication given. po. vitals signs stable and afebrile. no complained made so far.
[2019-06-13 16:09] VITALS: BP_SYST 135
--- NOTE | 2019-06-13 16:17 | NUR ---
went to the bathroom voided x 1. went to lavatory to wash hands and do her toothbrushing. watching patient and monitor assists on adls.
--- NOTE | 2019-06-13 18:38 | NUR ---
[facility] CALLED TO FOLLOW UP SPOKE WITH JONI SHE SAID PT WILL GO TO ROOM 210A . WILL CALL AND SET UP AMBULANCE. CHARGE NURSE AND RN AWARE
--- NOTE | 2019-06-13 18:53 | NUR ---
[facility]ER IS [phone]
--- NOTE | 2019-06-13 19:25 | NUR ---
ENDORSED TO INCOMING NURSE DEBBY Savage
--- NOTE | 2019-06-13 19:50 | NUR ---
Andrew Ramírez was informed pt is being transferred to [facility]. Andrew verbalized understanding.
[2019-06-13 20:41] VITALS: BP_SYST 135
--- NOTE | 2019-06-13 20:50 | NUR ---
PHONED [facility] SBAR REPORT GIVEN TO CARRIE LUKE , REGARDING Patient Transfer to ROOM 210 A .
--- NOTE | 2019-06-13 21:00 | NUR ---
2100 DUE MEDICATIONS PO GIVEN IV D/C , I.D. BAND REMOVED , TEMPORARY ID , APPLIED Patient Ready for D/C .
[2019-06-13] MEDS: MONTELUKAST 10 MG TABLET PO SCH (21:08)
--- NOTE | 2019-06-13 21:40 | NUR ---
[facility] Here for Pick - up orders to transfer patient back to [facility] , ORDERS CARRIED OUT .
== END 2019-06-13 21:57 | DRG 812 ==
LOC: SED 14:18 → STU 17:27 → SMU 06-11 23:49
PROVIDERS: ADMIT Internal Medicine Infectious Disease; ATTEND Internal Medicine Infectious Disease
DX: D46.9 Myelodysplastic syndrome, unspecified (principal); K92.2 Gastrointestinal hemorrhage, unspecified; D63.8 Anemia in other chronic diseases classified elsewhere; E87.5 Hyperkalemia; E03.9 Hypothyroidism, unspecified; E11.9 Type 2 diabetes mellitus without complications; F03.90 Unspecified dementia, unspecified severity, without behavioral disturbance, psychotic disturbance, mood disturbance, and anxiety; I10 Essential (primary) hypertension; K21.9 Gastro-esophageal reflux disease without esophagitis; M19.90 Unspecified osteoarthritis, unspecified site; J44.9 Chronic obstructive pulmonary disease, unspecified; D69.6 Thrombocytopenia, unspecified; E78.5 Hyperlipidemia, unspecified; K59.00 Constipation, unspecified; Z79.899 Other long term (current) drug therapy
CPT/HCPCS: 36415; 71045; 80053; 81000-TC; 82272; 82728; 82962; 83605; 84484; 85025; 85610-TC; 85730-TC; 87040-TC; 87081; 87086; 93005; 96360; 99285; G0378; J0885

== ENCOUNTER 2019-09-09 09:25 | Emergency (ER) | payer OTHER, MEDICAID ==
[~2019-09-09] VITALS: Ht 160 cm; Wt 43.1 kg
[2019-09-09 09:39] VITALS: BP_SYST 131
[2019-09-09] MEDS ORDERED: PYRI-6 PO (10:02)
[2019-09-09] MEDS ORDERED: CALC-827 PO (10:02)
[2019-09-09] MEDS ORDERED: FLEET PR (10:02)
[2019-09-09] MEDS ORDERED: LACT-47 PO (10:02)
[2019-09-09] MEDS ORDERED: MOM PO (10:02)
[2019-09-09] MEDS ORDERED: MULT-300 PO (10:02)
[2019-09-09 10:12] LABS: BASOPHILS # (AUTO) 0.1 K/uL (0.0-0.2); BASOPHILS % (AUTO) 1.4 % (0.0-2.0); EOSINOPHILS # (AUTO) 0.3 K/uL (0.0-0.4); EOSINOPHILS % (AUTO) 5.1 % (0.0-4.0); HEMATOCRIT 25.4 % (36-48); HEMOGLOBIN 8.4 g/dL (12.0-16.0); LYMPHOCYTES # (AUTO) 1.6 K/uL (1.0-5.5); LYMPHOCYTES % (AUTO) 31.1 % (20.5-51.5); MEAN CORPUSCULAR HEMOGLOBIN 41 pg (27-31); MEAN CORPUSCULAR HGB CONC 33 % (32-36); MEAN CORPUSCULAR VOLUME 125 fL (79.0-98.0); MONOCYTES # (AUTO) 0.5 K/uL (0.0-1.0); MONOCYTES % (AUTO) 10.9 % (1.7-9.3); NEUTROPHILS # (AUTO) 2.6 K/uL (1.8-7.7); NEUTROPHILS % (AUTO) 51.5 % (40.0-70.0); PLATELET COUNT (AUTO) 280 K/uL (130-430); RED BLOOD CELL COUNT(AUTO) 2.04 MIL/uL (4.2-6.2); RED CELL DISTRIBUTION WIDTH 22.1 % (9.0-15.0)
[2019-09-09 10:23] LABS: PROTHROMBIN TIME 10.5 SECS (9.5-12.5)
[2019-09-09 10:24] LABS: ANION GAP 4 (5-15); CALCIUM 8.9 mg/dL (8.4-11.0); CHLORIDE 106 mmol/L (98-107); CREATININE 1.23 mg/dL (0.55-1.30); GLUCOSE 110 mg/dL (70-99); POTASSIUM 5.3 mmol/L (3.5-5.1); SODIUM SERUM 138 mmol/L (136-145); UREA NITROGEN, BLOOD 58 mg/dL (8-21)
[2019-09-09 10:29] LABS: ALANINE AMINOTRANSFERASE 67 U/L (12-78); ALBUMIN 3.4 g/dL (3.4-4.8); ASPARTATE AMINOTRANSFERASE 43 U/L (10-37); TOTAL BILIRUBIN 0.7 mg/dL (0.0-1.0)
[2019-09-09] MEDS ORDERED: SODIUM POLYSTYRENE SULFONATE 15 GM/60 ML UDBTL PO ONE (10:45)
[2019-09-09 11:45] VITALS: BP_SYST 123
== END 2019-09-09 11:45 | disposition home or self-care (01) ==
LOC: SED 09:25
DX: D64.9 Anemia, unspecified (principal); E87.6 Hypokalemia; J44.9 Chronic obstructive pulmonary disease, unspecified; E11.9 Type 2 diabetes mellitus without complications; K21.9 Gastro-esophageal reflux disease without esophagitis; I10 Essential (primary) hypertension; E07.9 Disorder of thyroid, unspecified; E78.5 Hyperlipidemia, unspecified; Z79.899 Other long term (current) drug therapy
CPT/HCPCS: 36415; 80053; 85025; 85610-TC; 86886; 86900; 86901; 99283

== ENCOUNTER 2019-09-13 12:21 | Inpatient (IN) | payer OTHER, MEDICAID, SELFPAY ==
[~2019-09-13] VITALS: Ht 152.4 cm; Wt 39.9 kg
[2019-09-13 12:21] VITALS: BP_SYST 123
[~2019-09-13 12:21] MED LIST changes: +CALC-827 PO; -CRAN450C PO; +FLEET PR; +LACT-47 PO; +MOM PO; +MULT-300 PO; +PYRI-6 PO; -[UNRECOGNIZED DRUG - CODE] PO
[2019-09-13] MEDS ORDERED: NACL 0.9% 1,000 ML IV ONE (12:45)
[2019-09-13 13:19] LABS: HEMATOCRIT 23.5 % (36-48); HEMOGLOBIN 7.6 g/dL (12.0-16.0); MEAN CORPUSCULAR HEMOGLOBIN 41 pg (27-31); MEAN CORPUSCULAR HGB CONC 32 % (32-36); MEAN CORPUSCULAR VOLUME 126 fL (79.0-98.0); PLATELET COUNT (AUTO) 284 K/uL (130-430); RED CELL DISTRIBUTION WIDTH 21.4 % (9.0-15.0); WHITE BLOOD COUNT (AUTO) 4.8 K/uL (4.8-10.8)
[2019-09-13 13:20] LABS: RED BLOOD CELL COUNT(AUTO) 1.86 MIL/uL (4.2-6.2)
[2019-09-13 13:35] LABS: ANION GAP 7 (5-15); CHLORIDE 107 mmol/L (98-107); CREATININE 1.16 mg/dL (0.55-1.30); GLUCOSE 139 mg/dL (70-99); POTASSIUM 4.5 mmol/L (3.5-5.1); SODIUM SERUM 140 mmol/L (136-145); UREA NITROGEN, BLOOD 49 mg/dL (8-21)
[2019-09-13 13:36] LABS: ATYPICAL LYMPHOCYTES % 0 % (0-0); BAND % (MANUAL) 0 % (0-6); BASOPHILS % (MANUAL) 0 % (0-2); EOSINOPHILS % (MANUAL) 7 % (0-7); LYMPHOCYTES % (MANUAL) 34 % (20-46); MONOCYTES % (MANUAL) 7 % (0-11)
[2019-09-13 13:42] LABS: ALANINE AMINOTRANSFERASE 55 U/L (12-78); ALBUMIN 3.2 g/dL (3.4-4.8); ASPARTATE AMINOTRANSFERASE 32 U/L (10-37); LACTATE DEHYDROGENASE 139 U/L (81-234); TOTAL BILIRUBIN 0.7 mg/dL (0.0-1.0)
[2019-09-13 13:51] LABS: TOTAL IRON BIND. CAPACITY 174 ug/dL (250-450)
[2019-09-13 14:03] VITALS: BP_SYST 129
[2019-09-13 16:31] VITALS: BP_SYST 141
[2019-09-13 19:50] VITALS: BP_SYST 139
[2019-09-14 00:35] VITALS: BP_SYST 161
[2019-09-14 02:50] VITALS: BP_SYST 157
[2019-09-14 08:00] VITALS: BP_SYST 146
[2019-09-14 08:06] LABS: BASOPHILS # (AUTO) 0.1 K/uL (0.0-0.2); HEMOGLOBIN 12.1 g/dL (12.0-16.0); MONOCYTES # (AUTO) 0.2 K/uL (0.0-1.0)
[2019-09-14 08:17] LABS: BASOPHILS % (AUTO) 1.5 % (0.0-2.0); EOSINOPHILS # (AUTO) 0.3 K/uL (0.0-0.4); EOSINOPHILS % (AUTO) 3.9 % (0.0-4.0); HEMATOCRIT 36.5 % (36-48); LYMPHOCYTES # (AUTO) 2.6 K/uL (1.0-5.5); LYMPHOCYTES % (AUTO) 39.5 % (20.5-51.5); MEAN CORPUSCULAR HEMOGLOBIN 38 pg (27-31); MEAN CORPUSCULAR HGB CONC 33 % (32-36); MEAN CORPUSCULAR VOLUME 113 fL (79.0-98.0); MONOCYTES % (AUTO) 2.7 % (1.7-9.3); NEUTROPHILS # (AUTO) 3.4 K/uL (1.8-7.7); NEUTROPHILS % (AUTO) 52.4 % (40.0-70.0); PLATELET COUNT (AUTO) 314 K/uL (130-430); RED BLOOD CELL COUNT(AUTO) 3.22 MIL/uL (4.2-6.2); RED CELL DISTRIBUTION WIDTH 30.5 % (9.0-15.0); WHITE BLOOD COUNT (AUTO) 6.5 K/uL (4.8-10.8)
[2019-09-14 11:31] VITALS: BP_SYST 130
[2019-09-14] MEDS ORDERED: DEFEROXAMINE MESYLATE IV ONE (15:30)
[2019-09-14] MEDS ORDERED: NS IV ONE (15:30)
[2019-09-14 15:38] VITALS: BP_SYST 145
[2019-09-14 20:00] VITALS: BP_SYST 148
[2019-09-15] VITALS: BP_SYST 144
[2019-09-15 06:15] LABS: HEMATOCRIT 30.9 % (36-48); HEMOGLOBIN 10.1 g/dL (12.0-16.0); MEAN CORPUSCULAR HEMOGLOBIN 38 pg (27-31); MEAN CORPUSCULAR HGB CONC 33 % (32-36); MEAN CORPUSCULAR VOLUME 114 fL (79.0-98.0); PLATELET COUNT (AUTO) 280 K/uL (130-430); RED CELL DISTRIBUTION WIDTH 29.8 % (9.0-15.0); WHITE BLOOD COUNT (AUTO) 5.6 K/uL (4.8-10.8)
[2019-09-15 06:58] LABS: ATYPICAL LYMPHOCYTES % 6 % (0-0); BAND % (MANUAL) 4 % (0-6); BASOPHILS % (MANUAL) 0 % (0-2); EOSINOPHILS % (MANUAL) 6 % (0-7); LYMPHOCYTES % (MANUAL) 29 % (20-46); MONOCYTES % (MANUAL) 4 % (0-11)
[2019-09-15 08:00] VITALS: BP_SYST 153
[2019-09-15 11:29] VITALS: BP_SYST 146
[2019-09-15 15:57] VITALS: BP_SYST 137
[2019-09-15 20:00] VITALS: BP_SYST 142
[2019-09-15 23:27] VITALS: BP_SYST 147
[2019-09-16 06:45] LABS: BASOPHILS # (AUTO) 0.1 K/uL (0.0-0.2); BASOPHILS % (AUTO) 1.3 % (0.0-2.0); EOSINOPHILS # (AUTO) 0.3 K/uL (0.0-0.4); EOSINOPHILS % (AUTO) 5.4 % (0.0-4.0); HEMATOCRIT 31.2 % (36-48); HEMOGLOBIN 10.2 g/dL (12.0-16.0); LYMPHOCYTES % (AUTO) 38.6 % (20.5-51.5); MEAN CORPUSCULAR HEMOGLOBIN 38 pg (27-31); MEAN CORPUSCULAR HGB CONC 33 % (32-36); MEAN CORPUSCULAR VOLUME 115 fL (79.0-98.0); MONOCYTES # (AUTO) 0.2 K/uL (0.0-1.0); MONOCYTES % (AUTO) 4.1 % (1.7-9.3); NEUTROPHILS # (AUTO) 2.7 K/uL (1.8-7.7); NEUTROPHILS % (AUTO) 50.6 % (40.0-70.0); PLATELET COUNT (AUTO) 278 K/uL (130-430); RED CELL DISTRIBUTION WIDTH 29.2 % (9.0-15.0); WHITE BLOOD COUNT (AUTO) 5.3 K/uL (4.8-10.8)
[2019-09-16 08:00] VITALS: BP_SYST 140
[2019-09-16 12:35] VITALS: BP_SYST 158
[2019-09-16 17:08] VITALS: BP_SYST 148
[2019-09-16 20:00] VITALS: BP_SYST 137
[2019-09-17] VITALS (7 sets, daily range): BP systolic 112–148
== END 2019-09-17 18:30 | DRG 812 ==
LOC: SED 12:21 → SMU 12:54 → EEVIPCON 12:54 → SMU 13:11
PROVIDERS: ADMIT Internal Medicine; ATTEND Internal Medicine
PROC: 30233N1 Transfusion of Nonautologous Red Blood Cells into Peripheral Vein, Percutaneous Approach (ICD-10-PCS; principal; 2019-09-13)
DX: D46.9 Myelodysplastic syndrome, unspecified (principal); E44.0 Moderate protein-calorie malnutrition; R64 Cachexia; Z68.1 Body mass index [BMI] 19.9 or less, adult; E11.9 Type 2 diabetes mellitus without complications; J44.9 Chronic obstructive pulmonary disease, unspecified; I10 Essential (primary) hypertension; E78.5 Hyperlipidemia, unspecified; D63.8 Anemia in other chronic diseases classified elsewhere; Z20.828 Contact with and (suspected) exposure to other viral communicable diseases; F03.90 Unspecified dementia, unspecified severity, without behavioral disturbance, psychotic disturbance, mood disturbance, and anxiety; K21.9 Gastro-esophageal reflux disease without esophagitis; Z79.899 Other long term (current) drug therapy
CPT/HCPCS: 36415; 80053; 82728; 83540-TC; 83550-TC; 83615-TC; 85007; 85025; 85027; 86886; 86900; 86901; 86920; 87081; 96360; 99285; J0895; J7040; P9021; U0003-CS

== ENCOUNTER 2020-09-12 15:12 | Inpatient (IN) | payer OTHER, MEDICAID, SELFPAY ==
[~2020-09-12] VITALS: Ht 154.9 cm; Wt 44.7 kg
[~2020-09-12 15:12] MED LIST changes: +BLOO-1360 XX; +EPOE1VIA13 SUBCUT; -LACT-47 PO; -MONT10TA25 PO; +MONT10TA33 PO; -OMEP20CA11 PO; +OMEP20CA15 PO
--- NOTE | 2020-09-12 21:00 | NUR ---
ADMIT NOTE Received direct admit pt to the floor with a diagnosis of low hemoglobin. Admission process initiated. patient oriented to pain management, safety and call light-teach back done.
[2020-09-12 21:54] VITALS: BP_SYST 131
[2020-09-13] MEDS: D5/0.45 NS 1,000 ML IV SCH ×2 (00:32→21:16)
[2020-09-13] MEDS ORDERED: DOCU-144 PO (01:11)
[2020-09-13] MEDS ORDERED: PYRI50CA PO (01:11)
[2020-09-13] MEDS ORDERED: VIT B6 (01:11)
[2020-09-13] MEDS ORDERED: NA P133E41 RC (01:11)
--- NOTE | 2020-09-13 04:05 | NUR ---
BT INITIATION: Consent signed per PT'S GRANDSON agreeing to administration of blood. Blood has been type and crossmatched. Blood sent from blood bank. Information on unit of blood checked against patient wristband at bedside by two nurses. All information matches. Patient or responsible democrat informed of potential complications associated with blood transfusion. Informed of possible transfusion reaction symptoms. Aware of need to notify nurse at once of itching, shortness of breath, flushing, feeling of impending doom, or other symptoms not previously present. Vital signs taken within 5 minutes prior to initiation of transfusion. RN will remain with patient for first 15 minutes of transfusion at which time vital signs will be re-assessed.
--- NOTE | 2020-09-13 06:38 | NUR ---
Nutrition Update Jose Scale 16 noted. Pt admitted for Hemoglobin Diet: 2gm Na BMI: N/A kg/m2 RD to follow per nutrition care standards.
--- NOTE | 2020-09-13 07:31 | NUR ---
CLOSING NOTE PT RESTING IN BED, NO S/S OF ACUTE DISTRESS. ENDORSED TO DAY SHIFT RN.
[2020-09-13 11:09] LABS: HEMATOCRIT 24.6 % (36-48); HEMOGLOBIN 8.5 g/dL (12.0-16.0); MEAN CORPUSCULAR HEMOGLOBIN 37 pg (27-31); MEAN CORPUSCULAR HGB CONC 35 % (32-36); MEAN CORPUSCULAR VOLUME 108 fL (79.0-98.0); PLATELET COUNT (AUTO) 80 K/uL (130-430); RED BLOOD CELL COUNT(AUTO) 2.28 MIL/uL (4.2-6.2); RED CELL DISTRIBUTION WIDTH 31.5 % (9.0-15.0); WHITE BLOOD COUNT (AUTO) 5.3 K/uL (4.8-10.8)
[2020-09-13 11:27] LABS: ALANINE AMINOTRANSFERASE 87 U/L (12-78); ALBUMIN 2.8 g/dL (3.4-4.8); ANION GAP 7 (5-15); ASPARTATE AMINOTRANSFERASE 74 U/L (10-37); CALCIUM 8.7 mg/dL (8.4-11.0); CHLORIDE 107 mmol/L (98-107); GLUCOSE 121 mg/dL (70-99); POTASSIUM 4.5 mmol/L (3.5-5.1); SODIUM SERUM 142 mmol/L (136-145); THYROID STIMULATING HORMONE 98.12 uIu/mL (0.36-3.74); TOTAL BILIRUBIN 0.6 mg/dL (0.0-1.0); UREA NITROGEN, BLOOD 36 mg/dL (8-21)
[2020-09-13 12:12] VITALS: BP_SYST 103
[2020-09-13 12:22] LABS: CHOLESTEROL 100 mg/dL (<200); HDL CHOLESTEROL 50 mg/dL (>55); LDL CHOLESTEROL 54 mg/dL (<100); TRIGLYCERIDES 52 mg/dL (30-150)
[2020-09-13 14:17] LABS: BAND % (MANUAL) 3 % (0-6)
[2020-09-13 14:18] LABS: BASOPHILS % (MANUAL) 0 % (0-2); EOSINOPHILS % (MANUAL) 0 % (0-7); LYMPHOCYTES % (MANUAL) 54 % (20-46); MONOCYTES % (MANUAL) 7 % (0-11)
[2020-09-13 14:23] LABS: ATYPICAL LYMPHOCYTES % 28 % (0-0)
[2020-09-13 16:06] VITALS: BP_SYST 152
--- NOTE | 2020-09-13 17:23 | NUR ---
CONSULTATION PAGED/CALLED Reason for Consultation: ANEMIA Person Who was Notified: OFE Consulting Physician: PHYLLIS Ob Gyn Physician Assistant Specialty: JON Ordering Physician: KELLY
[2020-09-13] MEDS ORDERED: ACETAMINOPHEN 325 MG TABLET PO PRN (19:30)
[2020-09-13] MEDS ORDERED: ACETAMINOPHEN 500 MG TABLET PO PRN (19:30)
--- NOTE | 2020-09-13 19:30 | NUR ---
OPENING NOTES: Received report from dayshift nurse. Patient is laying in bed awake and alert to name. She is on room air with no s/s of distress or discomfort. Patient has IV on RFA infusing well. Ensured all safety precautions. Bed is locked and in the lowest position with alarm on and call light within reach.
[2020-09-13 20:05] VITALS: BP_SYST 130
[2020-09-13] MEDS: MONTELUKAST 10 MG TABLET PO SCH (21:14)
[2020-09-13] MEDS: MILK OF MAGNESIA 30 ML UDC PO SCH (21:14)
[2020-09-14 00:31] VITALS: BP_SYST 136
[2020-09-14] MEDS ORDERED: LEVOTHYROXINE SODIUM 0.125 MG TABLET PO SCH (07:00)
--- NOTE | 2020-09-14 07:40 | NUR ---
CLOSING NOTES: Patient declined to remove street clothes and change into patient gown. She wants to stay in her own clothes. She is in stable condition. I have endorsed to daysnhft nurse.
[2020-09-14 08:05] VITALS: BP_SYST 131
[2020-09-14] MEDS: PYRIDOXINE HCL 50 MG TABLET PO SCH (08:11)
[2020-09-14] MEDS: DOCUSATE SODIUM 100 MG CAPSULE PO SCH (08:11)
[2020-09-14] MEDS: METOPROLOL SUCCINATE 50 MG TAB.SR.24H (TOPROL XL) PO SCH (08:11)
[2020-09-14] MEDS: FOLIC ACID 1 MG TABLET PO SCH (08:11)
[2020-09-14] MEDS: PANTOPRAZOLE SODIUM 40 MG TAB PO SCH (08:11)
[2020-09-14] MEDS ORDERED: OMEPRAZOLE Non-Formulary 20 MG CAPSULE.DR PO SCH (09:00)
--- NOTE | 2020-09-14 09:00 | NUR ---
Mobility Patient able get out of bed unable to walked very stiff high fall risk , able to turn side to side , Cantonese speaking able to follow instruction.safety fall precaution initiated.
[2020-09-14] MEDS ORDERED: NS IV ONE (10:45)
[2020-09-14] MEDS ORDERED: DEFEROXAMINE MESYLATE IV ONE (10:45)
[2020-09-14 11:37] VITALS: BP_SYST 105
[2020-09-14 12:10] LABS: BILIRUBIN,URINE NEGATIVE (NEGATIVE); BLOOD, URINE NEGATIVE (NEGATIVE); CLARITY/URINE CLEAR (CLEAR); COLOR,URINE YELLOW (YELLOW); GLUCOSE,URINE NEGATIVE (NEGATIVE); KETONES,URINE NEGATIVE (NEGATIVE); LEUKOCYTE ESTERASE ,URINE NEGATIVE (NEGATIVE); NITRITE, URINE NEGATIVE (NEGATIVE); PROTEIN URINE 2+ (NEGATIVE); UROBILINOGEN,URINE 0.2 (0.2-1.0)
[2020-09-14 12:30] LABS: BACTERIA,URINE None Seen /HPF (None Seen); RBC,URINE 0-3 /HPF (0-3); WBC,URINE 0-3 /HPF (0-3)
--- NOTE | 2020-09-14 14:35 | NUR ---
CARLA note: Per Shelley/[facility] , the pt is accepting back to room 217 B, Rn to report [phone]. She aware pt is possible transfer today or tomorrow.
[2020-09-14 15:27] VITALS: BP_SYST 120
--- NOTE | 2020-09-14 15:58 | NUR ---
Spoke to Dr. MENDOZA regarding the discharge order patient was seen by Dr. Lujan in the morning , with medication ordered 1st dose started in a drip 500 cc @ 41 drops/minute and said will see the patient tomorrow
[2020-09-14] MEDS: D5/0.45 NS 1,000 ML IV SCH (16:40)
--- NOTE | 2020-09-14 16:52 | NUR ---
Dietitian Recommendations 1) add ensure enlive once daily to aid in PO intake 2) encourage PO intake 3) follow up on ONS needs ABY RD
--- NOTE | 2020-09-14 17:00 | NUR ---
SPOKE TO LORI AT [facility] AND BOOKED WILL CALL,TRANSFER TO [facility],ROOM 217# PH:[phone]
[2020-09-14] MEDS: MILK OF MAGNESIA 30 ML UDC PO SCH (18:29)
--- NOTE | 2020-09-14 19:20 | NUR ---
Opening note Received report from TI Pratt. Patient is awake, resting in bed, no distress. Non labored breathing on room air. IVF infusing via IV to RFA. Bed is locked in lowest position, bed alarm on, side rails up and call light w/in reach.
[2020-09-14 20:00] VITALS: BP_SYST 123
[2020-09-14] MEDS: MONTELUKAST 10 MG TABLET PO SCH (21:41)
--- NOTE | 2020-09-14 21:45 | NUR ---
MED, ACCUCHECK Due med given; she swallowed tablet w/ water. Accucheck result 107mg/dL, no coverage.
[2020-09-15 01:43] VITALS: BP_SYST 128
--- NOTE | 2020-09-15 04:02 | NUR ---
resting Patient resting w/eyes closed, symmetrical rise and fall of chest. Bed alarm on, safety precautions in place.
--- NOTE | 2020-09-15 06:45 | NUR ---
closing note, accucheck Patient awake, resting in bed, no distress. She was assisted w/ bed preciado for void. IVF infusing well. Safety precautions maintained. Accucheck result of 124mg/dL
[2020-09-15 07:17] LABS: TOTAL IRON BIND. CAPACITY 97 ug/dL (250-450)
[2020-09-15 07:29] LABS: ANION GAP 8 (5-15); CALCIUM 8.2 mg/dL (8.4-11.0); CHLORIDE 108 mmol/L (98-107); CREATININE 0.89 mg/dL (0.55-1.30); GLUCOSE 97 mg/dL (70-99); POTASSIUM 4.6 mmol/L (3.5-5.1); SODIUM SERUM 140 mmol/L (136-145); UREA NITROGEN, BLOOD 19 mg/dL (8-21)
[2020-09-15 07:45] LABS: HEMOGLOBIN 8.1 g/dL (12.0-16.0); MEAN CORPUSCULAR HEMOGLOBIN 37 pg (27-31); MEAN CORPUSCULAR HGB CONC 34 % (32-36); MEAN CORPUSCULAR VOLUME 109 fL (79.0-98.0); PLATELET COUNT (AUTO) 77 K/uL (130-430); RED CELL DISTRIBUTION WIDTH 30.2 % (9.0-15.0); WHITE BLOOD COUNT (AUTO) 4.1 K/uL (4.8-10.8)
[2020-09-15 08:30] VITALS: BP_SYST 126
[2020-09-15] MEDS: PYRIDOXINE HCL 50 MG TABLET PO SCH (08:35)
[2020-09-15] MEDS: FOLIC ACID 1 MG TABLET PO SCH (08:35)
[2020-09-15] MEDS: PANTOPRAZOLE SODIUM 40 MG TAB PO SCH (08:35)
[2020-09-15] MEDS: DOCUSATE SODIUM 100 MG CAPSULE PO SCH (08:35)
[2020-09-15] MEDS: METOPROLOL SUCCINATE 50 MG TAB.SR.24H (TOPROL XL) PO SCH (08:36)
[2020-09-15 08:37] LABS: BAND % (MANUAL) 3 % (0-6); BASOPHILS % (MANUAL) 0 % (0-2); EOSINOPHILS % (MANUAL) 0 % (0-7); LYMPHOCYTES % (MANUAL) 69 % (20-46); MONOCYTES % (MANUAL) 1 % (0-11)
[2020-09-15] MEDS: DEFEROXAMINE MESYLATE IV SCH (09:19)
[2020-09-15] MEDS: NS IV SCH (09:19)
[2020-09-15 11:38] VITALS: BP_SYST 120
[2020-09-15] MEDS ORDERED: SENNOSIDES 8.6 MG TABLET PO PRN (13:45)
[2020-09-15] MEDS ORDERED: SODIUM PHOSPHATE,MONO-DIBASIC 133 ML ENEMA RC PRN (13:45)
[2020-09-15] MEDS: D5/0.45 NS 1,000 ML IV SCH (15:36)
[2020-09-15 15:49] VITALS: BP_SYST 132
--- NOTE | 2020-09-15 16:51 | NUR ---
Patient is on IV Dex Methalate gtt by Dr Umanzor cannot accept pt on this medication-transfer to SNF on hold while patient is on this medication.
[2020-09-15] MEDS ORDERED: EPOETIN ALFA 10,000 UNITS/ML VIAL SUBCUT SCH (17:00)
--- NOTE | 2020-09-15 18:38 | NUR ---
Spoke to Dr. Tai Kemp to discharge to SNF tommorow, after 2nd dose of Desferal is completed.
[2020-09-15] MEDS: MILK OF MAGNESIA 30 ML UDC PO SCH (18:56)
[2020-09-15 19:40] VITALS: BP_SYST 116
--- NOTE | 2020-09-15 19:40 | NUR ---
INITIAL NOTE PATIENT IS STABLE AND LAYING IN BED. NO S/S OF RESPIRATORY DISTRESS NOTED. CALL LIGHT IN REACH. BED IS LOCKED, ALARMED, AND AT THE LOWEST POSITION. PLAN OF CARE IS DISCUSSED WITH PATIENT. FALL, SAFETY, ASPIRATION, AND RESPIRATORY PRECAUTIONS WILL BE IN PLACE THROUGHOUT THE SHIFT.
[2020-09-15] MEDS: MONTELUKAST 10 MG TABLET PO SCH (20:44)
[2020-09-16 00:17] VITALS: BP_SYST 133
[2020-09-16] MEDS: D5/0.45 NS 1,000 ML IV SCH (04:24)
--- NOTE | 2020-09-16 06:56 | NUR ---
CLOSING NOTE PATIENT IS STABLE AND LAYING IN BED. NO S/S OF RESPIRATORY DISTRESS NOTED. CALL LIGHT IN REACH. BED IS LOCKED, ALARMED, AND AT THE LOWEST POSITION. FALL, SAFETY, ASPIRATION, AND RESPIRATORY PRECAUTIONS HAS BEEN IN PLACE THROUGHOUT THE SHIFT. WILL CONTINUE TO MONITOR UNTIL SBAR REPORT IS ENDORSED TO AM NURSE.
[2020-09-16 07:40] LABS: HEMATOCRIT 25.1 % (36-48); HEMOGLOBIN 8.4 g/dL (12.0-16.0); MEAN CORPUSCULAR HEMOGLOBIN 37 pg (27-31); MEAN CORPUSCULAR HGB CONC 34 % (32-36); MEAN CORPUSCULAR VOLUME 110 fL (79.0-98.0); PLATELET COUNT (AUTO) 69 K/uL (130-430); RED BLOOD CELL COUNT(AUTO) 2.29 MIL/uL (4.2-6.2); RED CELL DISTRIBUTION WIDTH 30.1 % (9.0-15.0); WHITE BLOOD COUNT (AUTO) 4.4 K/uL (4.8-10.8)
--- NOTE | 2020-09-16 08:15 | NUR ---
Opening note Patient is resting in bed A&O x2 does not speak Georgian, does no express complaint of pain or discomfort, no signs or symptoms of respiratory distress. IV is infusing well no signs or symptoms of respiratory distress. Attempted to educate patient on plan of care, patient nodded their head for understanding, will continue to reenforce education. Fall and aspiration precautions are in place. Will continue to monitor.
[2020-09-16 08:50] VITALS: BP_SYST 123
[2020-09-16] MEDS ORDERED: DOCUSATE SODIUM 100 MG CAPSULE PO SCH (09:00)
[2020-09-16] MEDS: PYRIDOXINE HCL 50 MG TABLET PO SCH (09:29)
[2020-09-16] MEDS: DOCUSATE SODIUM 100 MG CAPSULE PO SCH (09:29)
[2020-09-16] MEDS: PANTOPRAZOLE SODIUM 40 MG TAB PO SCH (09:29)
[2020-09-16] MEDS: METOPROLOL SUCCINATE 50 MG TAB.SR.24H (TOPROL XL) PO SCH (09:30)
[2020-09-16] MEDS: FOLIC ACID 1 MG TABLET PO SCH (09:30)
[2020-09-16] MEDS: NS IV SCH (09:32)
[2020-09-16] MEDS: DEFEROXAMINE MESYLATE IV SCH (09:32)
[2020-09-16 11:37] LABS: ATYPICAL LYMPHOCYTES % 20 % (0-0); EOSINOPHILS % (MANUAL) 3 % (0-7); LYMPHOCYTES % (MANUAL) 49 % (20-46); MONOCYTES % (MANUAL) 12 % (0-11)
[2020-09-16 11:38] LABS: BASOPHILS % (MANUAL) 0 % (0-2); BLASTS, MANUAL % 3 % (0-0)
--- NOTE | 2020-09-16 11:39 | NUR ---
PAGED PAGED BRANDY GAN AT [phone] SPOKE WITH
--- NOTE | 2020-09-16 11:44 | NUR ---
CM note: SPOKE TO Jerod / [facility] and activated WILL CALL,TRANSFER TO [facility],ROOM 217# PH:[phone].
--- NOTE | 2020-09-16 11:51 | NUR ---
RN note Spoke with regarding possible discharge, MD villatoro with patient discharging today. Will inform Dr. Galicia for discharge orders.
--- NOTE | 2020-09-16 11:53 | NUR ---
RN note Spoke with Dr. Galicia regarding patient discharge, Md villatoro with discharge. Will place order.
[2020-09-16 12:00] VITALS: BP_SYST 128
--- NOTE | 2020-09-16 12:18 | NUR ---
[facility], charge nurse Priti confirmed Rm 217 A.
--- NOTE | 2020-09-16 12:54 | NUR ---
[facility] WILL TAKE PT TO [facility], RM [address]. SHIPPING SPECIALIST TIME IS 1400. SPOKE TO KAYLIN
[2020-09-16 12:58] VITALS: BP_SYST 128
--- NOTE | 2020-09-16 14:10 | NUR ---
D/C Patient Priti Viramontes from [facility] given medication reconciliation form and D/C instructions and education. Exit Care provided. Patient in stable condition, ID band removed. IV catheter removed, intact and dressing applied, no active bleeding. All belongings sent with patient.
== END 2020-09-16 14:10 | DRG 811 ==
LOC: SMU 21:00
PROVIDERS: ADMIT Internal Medicine; ATTEND Internal Medicine
PROC: 30233N1 Transfusion of Nonautologous Red Blood Cells into Peripheral Vein, Percutaneous Approach (ICD-10-PCS; principal; 2020-09-13)
DX: D46.9 Myelodysplastic syndrome, unspecified (principal); E43 Unspecified severe protein-calorie malnutrition; N17.0 Acute kidney failure with tubular necrosis; Z68.1 Body mass index [BMI] 19.9 or less, adult; D63.8 Anemia in other chronic diseases classified elsewhere; D69.6 Thrombocytopenia, unspecified; I10 Essential (primary) hypertension; K21.9 Gastro-esophageal reflux disease without esophagitis; E03.9 Hypothyroidism, unspecified; E86.0 Dehydration; Z20.822 Contact with and (suspected) exposure to COVID-19; Z79.899 Other long term (current) drug therapy
CPT/HCPCS: 36415; 80048; 80053; 80061; 81000; 82728; 82962; 83540; 83550; 83880; 84443; 85007; 85027; 85379; 86886; 86900; 86901; 86920; 87081; J0885; J0895; J7040; P9021

== ENCOUNTER 2020-12-07 03:10 | Observation (INO) | payer OTHER, MEDICAID, SELFPAY ==
[~2020-12-07] VITALS: Ht 154.9 cm; Wt 41.9 kg
[2020-12-07 03:10] VITALS: BP_SYST 123
[~2020-12-07 03:10] MED LIST changes: +ASCO500T20 PO; -EPOE1VIA13 SUBCUT; -FLEET PR; -LEVO125T PO; +LEVO25TA2 PO; +LORA-259 PO; +NA P133E41 RC
--- NOTE | 2020-12-07 03:40 | NUR ---
PT BIB BLS AMBULANCE FOR LOW HEMOGLOBIN AND PLATLET. PT COMES FROM [facility] IN [facility]. A&OX1. PT IS FULLCODE AND BROUGHT HERE FOR EVAL DUE TO HER PRIMARY DOCTOR BEING DR MENDOZA
--- NOTE | 2020-12-07 03:40 | NUR ---
Placed in room 03. Placed on library manager, blood pressure machine and pulse oximeter. To gown for exam. Side rails up. Report given to LEAH.
[2020-12-07] MEDS ORDERED: DIPHENHYDRAMINE INJ 50 MG/ML VIAL IVP ONE (03:45)
[2020-12-07] MEDS ORDERED: HALOPERIDOL LACTATE 5 MG/ML VIAL IVP ONE (03:45)
[2020-12-07 04:26] LABS: MEAN CORPUSCULAR HEMOGLOBIN 36 pg (27-31); MEAN CORPUSCULAR HGB CONC 34 % (32-36); MEAN CORPUSCULAR VOLUME 107 fL (79.0-98.0); WHITE BLOOD COUNT (AUTO) 8.8 K/uL (4.8-10.8)
[2020-12-07 04:31] LABS: ANION GAP 7 (5-15); CALCIUM 9.3 mg/dL (8.4-11.0); CHLORIDE 107 mmol/L (98-107); CREATININE 1.53 mg/dL (0.55-1.30); GLUCOSE 92 mg/dL (70-99); POTASSIUM 4.9 mmol/L (3.5-5.1); SODIUM SERUM 141 mmol/L (136-145); UREA NITROGEN, BLOOD 50 mg/dL (8-21)
[2020-12-07 04:34] LABS: RED BLOOD CELL COUNT(AUTO) 1.81 MIL/uL (4.2-6.2)
[2020-12-07 04:39] LABS: HEMATOCRIT 19.3 % (36-48); HEMOGLOBIN 6.5 g/dL (12.0-16.0); PLATELET COUNT (AUTO) 47 K/uL (130-430)
[2020-12-07 04:42] LABS: ALANINE AMINOTRANSFERASE 145 U/L (12-78); ALBUMIN 2.8 g/dL (3.4-4.8); ASPARTATE AMINOTRANSFERASE 100 U/L (10-37); TOTAL BILIRUBIN 0.4 mg/dL (0.0-1.0)
--- NOTE | 2020-12-07 04:45 | NUR ---
# 20 gauge angiocath placed to LAC. Use of asceptic technique. Opsite placed over site. Blood return noted. Blood for lab drawn from site. Flushed with 10 cc of normal saline. No evidence of infiltration noted. Patient tolerated well.
[2020-12-07] MEDS ORDERED: NACL 0.9% 1,000 ML IV ONE (05:00)
--- NOTE | 2020-12-07 05:47 | NUR ---
Medication reconciliation completed with information provided by . Any prior medication reconciliation on file was reviewed and corrected.
--- NOTE | 2020-12-07 05:48 | NUR ---
PT IS FULL CODE
--- NOTE | 2020-12-07 05:52 | NUR ---
PTs BELONGINGS LIST COMPLETE
[2020-12-07 06:21] LABS: ATYPICAL LYMPHOCYTES % 5 % (0-0); BASOPHILS % (MANUAL) 0 % (0-2); EOSINOPHILS % (MANUAL) 0 % (0-7)
--- NOTE | 2020-12-07 07:03 | NUR ---
PT ENDORSED TO MERLENE LUKE
--- NOTE | 2020-12-07 07:09 | NUR ---
JUVE TO ASSUME CARE, CALM, ALERT, NO DISTRESS
--- NOTE | 2020-12-07 07:51 | NUR ---
VERBAL CONSENT W/ LAURIE OVER THE PHONE FOR TX. JOHN LUKE TO SECOND THE CONSENT
--- NOTE | 2020-12-07 09:56 | NUR ---
MEAL PROVIDED, TOLERATING PO WELL
--- NOTE | 2020-12-07 11:10 | NUR ---
BLOOD TRANSFUSION STARTED. IV SITE PATENT, PT ALERT, CALM, VSS
--- NOTE | 2020-12-07 11:29 | NUR ---
TOLERATING TRANSFUSION WELL. NO DISTRESS, VSS
[2020-12-07 12:02] LABS: LYMPHOCYTES % (MANUAL) 15 % (20-46)
[2020-12-07 12:05] LABS: MONOCYTES % (MANUAL) 5 % (0-11)
[2020-12-07 12:06] LABS: OTHER CELLS,MANUAL % 65 (0-0)
--- NOTE | 2020-12-07 12:21 | NUR ---
SLEEPING, TX IN PROGRESS, NO DYSPNEA, VSS, IV SITE PATENT
--- NOTE | 2020-12-07 13:13 | NUR ---
FIRST UNIT COMPLETED. TOLERATED WELL
--- NOTE | 2020-12-07 13:40 | NUR ---
MEAL PROVIDED FOR PT.
--- NOTE | 2020-12-07 15:44 | NUR ---
SECOND UNIT COMPLETED, TOLERATED WELL
--- NOTE | 2020-12-07 16:57 | NUR ---
REPOSITIONED FOR COMFORT, NO DISTRESS
--- NOTE | 2020-12-07 17:22 | NUR ---
REPOSITIONED FOR COMFORT, LINEN CHANGE. NO DISTRESS. TOLERATING PO FLUIDS
--- NOTE | 2020-12-07 19:10 | NUR ---
REPOSITIONED TOLERATED, VSS, RESP UNLABORED, SKIN WARM AND DRY
--- NOTE | 2020-12-07 19:20 | NUR ---
ASSUMED CARE OF PT. REPORT GIVEN BY DAY SHIFT RN. PT STABLE AND ON MONITOR.
--- NOTE | 2020-12-07 19:47 | NUR ---
Transfer to 105A via ACLS protocol. Licensed nurse present. IV present no signs or symptoms of infiltration. REPORT GIVEN TO BEDSIDE NURSE. PT STABLE FOR TRANSFER
[2020-12-07 19:58] VITALS: BP_SYST 154
--- NOTE | 2020-12-07 19:58 | NUR ---
ADMISSION NOTE Received patient from ER via gurney, received report from RN. Patient admitted with diagnosis of Severe Anemia. Patient oriented to hospital routine, call light, toileting and safety, reinforcement on teachings needed.
--- NOTE | 2020-12-07 22:45 | NUR ---
DR. MENDOZA PAGED AND TALKED TO DR. MENDOZA FOR DIET ORDER AND INFORMED HIM OF THE MED REC TO BE DONE, STATED WILL DO IT TOMORROW. WILL CONTINUE TO MONITOR.
--- NOTE | 2020-12-08 02:15 | NUR ---
ROUNDS PATIENT ASLEEP, RESPIRATIONS EVEN AND UNLABORED, WILL CONTINUE TO MONITOR.
--- NOTE | 2020-12-08 06:46 | NUR ---
CLOSING NOTES PATIENT AWAKE, NO COMPLAINTS AT THIS TIME, ALL NEEDS ATTENDED TO. CALL LIGHT PLACED WITHIN REACH.
[2020-12-08 08:00] VITALS: BP_SYST 147
--- NOTE | 2020-12-08 09:04 | NUR ---
Nutrition Update Jose Scale 14 noted. Pt admitted for Severe anemia. Diet:Regular diet. BMI: 17.4 kg/m2 RD to follow per nutrition care standards.
[2020-12-08 11:34] VITALS: BP_SYST 152
--- NOTE | 2020-12-08 12:30 | NUR ---
CM note: received dc order to send pt back to [facility]. The pt is accepting to room 217B. Jarek/son made aware and agreed with the transfer today at 2 pm >> Booked with Giulia/NATALY Hammer for orange picker machine operator at 2 pm. -- TI Wiley made aware, dc package placed in nursing station.
[2020-12-08 13:11] VITALS: BP_SYST 97
--- NOTE | 2020-12-08 13:45 | NUR ---
NOTE Report was given to Jose LUKE at [facility] at 1310. Pt dressed in orange gown and sheet. Pt was checked on q1' and PRN all shift for needs and care. Pt's bed in low position and bed alarm on all shift. Pt next to nurses station for close observation. Pt's IV in left AC was dc'd - site benign and no swelling/redness/bleeding noted at this time. Pt's discharge packet at nurses station for EMT. Call light within reach.
--- NOTE | 2020-12-08 14:25 | NUR ---
Note EMT from [facility] arrived on floor and report given. Pt's discharge packet given to EMT for [facility] for continuation of care. Pt's tele unit was dc'd and returned to radiation monitor. Pt off the floor via gurney with all belongings and discharge packet. Pt stable at this time. No blood noted in stool or urine all shift.
== END 2020-12-08 14:25 ==
LOC: SED 03:10 → STU 04:46 → INTOOBSV 04:46 → STU 05:15
PROVIDERS: ADMIT Internal Medicine; ATTEND Internal Medicine
DX: D64.9 Anemia, unspecified (principal); Z20.822 Contact with and (suspected) exposure to COVID-19; K21.9 Gastro-esophageal reflux disease without esophagitis; E78.5 Hyperlipidemia, unspecified; I10 Essential (primary) hypertension; E11.9 Type 2 diabetes mellitus without complications; F03.90 Unspecified dementia, unspecified severity, without behavioral disturbance, psychotic disturbance, mood disturbance, and anxiety; J44.9 Chronic obstructive pulmonary disease, unspecified; M19.90 Unspecified osteoarthritis, unspecified site; Z79.899 Other long term (current) drug therapy
CPT/HCPCS: 36415; 36430; 80053; 83051; 85007; 85027; 86886; 86900; 86901; 86920; 87426; 96374; 96375; 99291; G0378; J1200; J1630; P9021

== ENCOUNTER 2020-12-27 14:11 | Inpatient (IN) | payer OTHER, MEDICAID, SELFPAY ==
[~2020-12-27] VITALS: Ht 154.9 cm; Wt 41.7 kg
[~2020-12-27 14:11] MED LIST changes: -BLOO-1360 XX; -LORA-259 PO
[2020-12-28] MEDS ORDERED: INSULIN REGULAR, HUMAN 100 UNITS/ML, 10 ML VIAL (humuLIN R) SUBCUT PRN (00:30)
[2020-12-28 00:33] VITALS: BP_SYST 116
[2020-12-28 02:44] LABS: MEAN CORPUSCULAR HEMOGLOBIN 36 pg (27-31); MEAN CORPUSCULAR HGB CONC 34 % (32-36); MEAN CORPUSCULAR VOLUME 107 fL (79.0-98.0); RED BLOOD CELL COUNT(AUTO) 2.02 MIL/uL (4.2-6.2); RED CELL DISTRIBUTION WIDTH 29.2 % (9.0-15.0); WHITE BLOOD COUNT (AUTO) 9.6 K/uL (4.8-10.8)
[2020-12-28 02:56] LABS: HEMATOCRIT 21.5 % (36-48); HEMOGLOBIN 7.2 g/dL (12.0-16.0); PLATELET COUNT (AUTO) 38 K/uL (130-430)
[2020-12-28] MEDS ORDERED: SER25 PO (04:40)
[2020-12-28 05:31] LABS: BASOPHILS % (MANUAL) 0 % (0-2); EOSINOPHILS % (MANUAL) 0 % (0-7); LYMPHOCYTES % (MANUAL) 60 % (20-46); MONOCYTES % (MANUAL) 0 % (0-11)
[2020-12-28] MEDS: D5/0.45 NS 1,000 ML IV SCH ×2 (05:45→20:30)
[2020-12-28] MEDS ORDERED: GLUCOSE (DEXTROSE) ORAL GEL -Adults PO PRN (07:30)
[2020-12-28] MEDS ORDERED: D5W 1,000 ML IV PRN (07:30)
[2020-12-28] MEDS ORDERED: DEXTROSE 50%-WATER 50 ML DISP.SYRIN IVP PRN (07:30)
[2020-12-28 07:51] LABS: HEMATOCRIT 25.6 % (36-48); HEMOGLOBIN 8.6 g/dL (12.0-16.0); MEAN CORPUSCULAR HEMOGLOBIN 36 pg (27-31); MEAN CORPUSCULAR HGB CONC 34 % (32-36); MEAN CORPUSCULAR VOLUME 106 fL (79.0-98.0); RED BLOOD CELL COUNT(AUTO) 2.41 MIL/uL (4.2-6.2); RED CELL DISTRIBUTION WIDTH 29.3 % (9.0-15.0)
[2020-12-28 08:00] VITALS: BP_SYST 133
[2020-12-28 08:23] LABS: ALANINE AMINOTRANSFERASE 135 U/L (12-78); ALBUMIN 2.9 g/dL (3.4-4.8); ANION GAP 6 (5-15); ASPARTATE AMINOTRANSFERASE 93 U/L (10-37); CALCIUM 9.9 mg/dL (8.4-11.0); CHLORIDE 104 mmol/L (98-107); CREATININE 1.14 mg/dL (0.55-1.30); GLUCOSE 89 mg/dL (70-99); POTASSIUM 4.7 mmol/L (3.5-5.1); SODIUM SERUM 139 mmol/L (136-145); TOTAL BILIRUBIN 0.5 mg/dL (0.0-1.0); UREA NITROGEN, BLOOD 45 mg/dL (8-21)
[2020-12-28 08:54] LABS: PLATELET COUNT (AUTO) 41 K/uL (130-430)
[2020-12-28 11:26] VITALS: BP_SYST 171
[2020-12-28] MEDS ORDERED: NS IV ONE (11:30)
[2020-12-28] MEDS ORDERED: DEFEROXAMINE MESYLATE IV ONE (11:30)
[2020-12-28 11:56] LABS: ATYPICAL LYMPHOCYTES % 1 % (0-0); BAND % (MANUAL) 2 % (0-6); LYMPHOCYTES % (MANUAL) 30 % (20-46); MONOCYTES % (MANUAL) 5 % (0-11)
[2020-12-28 11:57] LABS: BASOPHILS % (MANUAL) 0 % (0-2); EOSINOPHILS % (MANUAL) 0 % (0-7)
[2020-12-28 12:19] VITALS: BP_SYST 125
[2020-12-28] MEDS ORDERED: cloNIDine HCL 0.1 MG TABLET PO PRN (12:30)
[2020-12-28 14:32] LABS: OTHER CELLS,MANUAL % 25 (0-0)
[2020-12-28 15:35] VITALS: BP_SYST 131
[2020-12-28 20:00] VITALS: BP_SYST 130
[2020-12-29 00:39] VITALS: BP_SYST 132
[2020-12-29 07:31] LABS: BASOPHILS % (AUTO) 0.1 % (0.0-2.0); EOSINOPHILS % (AUTO) 0.5 % (0.0-4.0); HEMATOCRIT 27.9 % (36-48); HEMOGLOBIN 9.4 g/dL (12.0-16.0); LYMPHOCYTES # (AUTO) 0.6 K/uL (1.0-5.5); LYMPHOCYTES % (AUTO) 7.5 % (20.5-51.5); MEAN CORPUSCULAR HEMOGLOBIN 35 pg (27-31); MEAN CORPUSCULAR HGB CONC 34 % (32-36); MEAN CORPUSCULAR VOLUME 105 fL (79.0-98.0); MONOCYTES # (AUTO) 6.7 K/uL (0.0-1.0); MONOCYTES % (AUTO) 86.9 % (1.7-9.3); RED BLOOD CELL COUNT(AUTO) 2.67 MIL/uL (4.2-6.2); RED CELL DISTRIBUTION WIDTH 24.6 % (9.0-15.0); RETICULOCYTE COUNT 1.1 % (0.5-1.5); WHITE BLOOD COUNT (AUTO) 7.7 K/uL (4.8-10.8)
[2020-12-29 08:00] VITALS: BP_SYST 155
[2020-12-29 08:00] LABS: ANION GAP 5 (5-15); CALCIUM 9.2 mg/dL (8.4-11.0); CHLORIDE 106 mmol/L (98-107); CREATININE 1.04 mg/dL (0.55-1.30); GLUCOSE 97 mg/dL (70-99); SODIUM SERUM 138 mmol/L (136-145); UREA NITROGEN, BLOOD 39 mg/dL (8-21)
[2020-12-29 08:32] LABS: BLASTS, MANUAL % 55 % (0-0)
[2020-12-29 09:10] LABS: NEUTROPHILS # (AUTO) 0.4 K/uL (1.8-7.7); PLATELET COUNT (AUTO) 37 K/uL (130-430)
[2020-12-29 09:12] LABS: TOTAL IRON BIND. CAPACITY 182 ug/dL (250-450)
[2020-12-29] MEDS: NS IV SCH (09:36)
[2020-12-29] MEDS: DEFEROXAMINE MESYLATE IV SCH (09:36)
[2020-12-29 11:25] VITALS: BP_SYST 136
[2020-12-29 14:43] LABS: BILIRUBIN,URINE NEGATIVE (NEGATIVE); BLOOD, URINE 1+ (NEGATIVE); CLARITY/URINE CLOUDY (CLEAR); COLOR,URINE YELLOW (YELLOW); GLUCOSE,URINE NEGATIVE (NEGATIVE); KETONES,URINE NEGATIVE (NEGATIVE); LEUKOCYTE ESTERASE ,URINE 2+ (NEGATIVE); NITRITE, URINE NEGATIVE (NEGATIVE); PROTEIN URINE 2+ (NEGATIVE); UROBILINOGEN,URINE 0.2 (0.2-1.0)
[2020-12-29 14:59] LABS: BACTERIA,URINE MANY /HPF (None Seen); MUCUS,URINE None Seen /LPF (None Seen); WBC,URINE 80-100 /HPF (0-3)
[2020-12-29 15:48] VITALS: BP_SYST 134
[2020-12-29] MEDS: D5/0.45 NS 1,000 ML IV SCH (16:38)
[2020-12-29 19:43] VITALS: BP_SYST 151
[2020-12-29] MEDS ORDERED: LEVOFLOXACIN IN DEXTROSE 5 % 100 ML IV ONE ×2 (21:30→23:31)
[2020-12-29] MEDS ORDERED: LORazepam 2 MG/ML VIAL IM PRN (22:30)
[2020-12-29] MEDS ORDERED: NALOXONE HCL 0.4 MG/ML AMP (NARCAN) IVP PRN (23:15)
[2020-12-29] MEDS ORDERED: MORPHINE 2 MG/ML INJ. SYRINGE IVP ONE (23:15)
[2020-12-30 01:12] VITALS: BP_SYST 142
[2020-12-30] MEDS: LORazepam 2 MG/ML VIAL IVP PRN ×3 (04:15→19:05)
[2020-12-30] MEDS: D5/0.45 NS 1,000 ML IV SCH (06:07)
[2020-12-30 07:06] LABS: FOLATE (FOLIC ACID) >20.0 ng/mL (>3.0)
[2020-12-30 08:00] VITALS: BP_SYST 121
[2020-12-30] MEDS: NS IV SCH (09:37)
[2020-12-30] MEDS: DEFEROXAMINE MESYLATE IV SCH (09:37)
[2020-12-30 12:39] VITALS: BP_SYST 143
[2020-12-30 16:43] VITALS: BP_SYST 137
[2020-12-30 20:00] VITALS: BP_SYST 131
[2020-12-30] MEDS: LEVOFLOXACIN 250 MG/D5W 50 ML IV SCH (20:34)
[2020-12-31] VITALS: BP_SYST 129
[2020-12-31] MEDS: LORazepam 2 MG/ML VIAL IVP PRN ×2 (00:34→05:57)
[2020-12-31 08:15] VITALS: BP_SYST 154
[2020-12-31] MEDS: NS IV SCH (08:51)
[2020-12-31] MEDS: DEFEROXAMINE MESYLATE IV SCH (08:51)
[2020-12-31 12:00] VITALS: BP_SYST 151
[2020-12-31] MEDS: D5/0.45 NS 1,000 ML IV SCH (15:47)
[2020-12-31 16:00] VITALS: BP_SYST 150
[2020-12-31] MEDS: LEVOFLOXACIN 250 MG/D5W 50 ML IV SCH (20:25)
[2021-01-01 00:06] VITALS: BP_SYST 137
[2021-01-01] MEDS: D5/0.45 NS 1,000 ML IV SCH (06:45)
[2021-01-01 07:47] LABS: BASOPHILS % (AUTO) 0.1 % (0.0-2.0); EOSINOPHILS % (AUTO) 0.4 % (0.0-4.0); HEMOGLOBIN 9.2 g/dL (12.0-16.0); LYMPHOCYTES # (AUTO) 1.6 K/uL (1.0-5.5); LYMPHOCYTES % (AUTO) 24.9 % (20.5-51.5); MEAN CORPUSCULAR HEMOGLOBIN 35 pg (27-31); MEAN CORPUSCULAR HGB CONC 34 % (32-36); MEAN CORPUSCULAR VOLUME 102 fL (79.0-98.0); MONOCYTES # (AUTO) 4.4 K/uL (0.0-1.0); MONOCYTES % (AUTO) 67.9 % (1.7-9.3); RED BLOOD CELL COUNT(AUTO) 2.65 MIL/uL (4.2-6.2); RED CELL DISTRIBUTION WIDTH 22.9 % (9.0-15.0); WHITE BLOOD COUNT (AUTO) 6.4 K/uL (4.8-10.8)
[2021-01-01] MEDS: DEFEROXAMINE MESYLATE IV SCH (08:49)
[2021-01-01] MEDS: NS IV SCH (08:49)
[2021-01-01 08:50] VITALS: BP_SYST 152
[2021-01-01 10:39] LABS: NEUTROPHILS # (AUTO) 0.4 K/uL (1.8-7.7); PLATELET COUNT (AUTO) 31 K/uL (130-430)
[2021-01-01 10:40] LABS: NEUTROPHILS % (AUTO) 6.7 % (40.0-70.0)
[2021-01-01 11:29] VITALS: BP_SYST 133
[2021-01-01 15:28] VITALS: BP_SYST 121
[2021-01-01 18:58] VITALS: BP_SYST 121
[2021-01-01 20:00] VITALS: BP_SYST 131
[2021-01-01] MEDS: LEVOFLOXACIN 250 MG/D5W 50 ML IV SCH (22:24)
[2021-01-02] VITALS: BP_SYST 128
== END 2021-01-01 23:49 | DRG 811 ==
LOC: SMU 23:50
PROVIDERS: ADMIT Internal Medicine; ATTEND Internal Medicine
PROC: 30233N1 Transfusion of Nonautologous Red Blood Cells into Peripheral Vein, Percutaneous Approach (ICD-10-PCS; principal; 2020-12-28)
DX: D46.9 Myelodysplastic syndrome, unspecified (principal); E43 Unspecified severe protein-calorie malnutrition; Z68.1 Body mass index [BMI] 19.9 or less, adult; E83.111 Hemochromatosis due to repeated red blood cell transfusions; E03.9 Hypothyroidism, unspecified; Z20.822 Contact with and (suspected) exposure to COVID-19; I10 Essential (primary) hypertension; F03.90 Unspecified dementia, unspecified severity, without behavioral disturbance, psychotic disturbance, mood disturbance, and anxiety; Z79.899 Other long term (current) drug therapy
CPT/HCPCS: 36415; 80048; 80053; 81000; 82607; 82728; 82746; 82962; 83540; 83550; 85007; 85025; 85027; 85044; 86886; 86900; 86901; 86920; 87081; 87086; 97110-GP; 97116-GP; 97530-GP; J0895; J1815; J1956; J2060; J7040; P9021